=== PATIENT | female | born 1950 | race Caucasian/White ===

== ENCOUNTER → 2020-01-15 16:05 | Outpatient (CLI) | payer MEDICARE, SELFPAY ==
--- NOTE | 2020-01-15 | DI.RAD.S_ITS ---
PROCEDURE: XR BONE LENGTH SCANOGRAM INDICATIONS: Leg Length Different After Knee Replacement TECHNIQUE: A single frontal standing view of both lower extremities acquired, with measuring ruler situated between the legs. COMPARISON: None. FINDINGS: Right: Total leg length is 83.3 cm. Total knee arthroplasty. Left: Total leg length is 84.9 cm. Total knee arthroplasty. IMPRESSION: Right leg is 1.5 cm shorter than the left. Dictated by: Henrique Raya M.D. on 01/15/2020 at 17:01 Approved by: Henrique Raya M.D. on 01/15/2020 at 17:03
== END ==
PROVIDERS: PCP Nurse Practitioner Family; Referring Provider Chiropractor Neurology; Visit Provider Chiropractor Neurology
DX: T84.89XA Other specified complication of internal orthopedic prosthetic devices, implants and grafts, initial encounter (principal); M21.70 Unequal limb length (acquired), unspecified site; M54.9 Dorsalgia, unspecified; Z96.653 Presence of artificial knee joint, bilateral
CPT/HCPCS: 77073

== ENCOUNTER → 2020-07-02 09:57 | Outpatient (CLI) | payer MEDICARE, SELFPAY ==
[2020-07-02 10:19] LABS: Add Manual Diff / Slide Review NO; Basophils Absolute Auto 0 /uL (0-100); Basophils Percent Auto 0.9 % (0-2); Eosinophils Absolute Auto 200 /uL (0-450); Eosinophils Percent Auto 4.1 % (2-4); Hematocrit 36.8 % (36-46); Hemoglobin 11.9 g/dL (12.0-16.0); Lymphocytes Absolute Auto 1400 /uL (1100-4500); Lymphocytes Percent Auto 29.7 % (25-40); Mean Corpuscular HGB Conc 32.2 % (30-36); Mean Corpuscular Hemoglobin 28.4 PG (26-34); Mean Corpuscular Volume 88.2 fL (80-100); Monocytes Absolute Auto 300 /uL (0-900); Monocytes Percent Auto 7.2 % (3-14); Neutrophils Absolute Auto 2700 /uL (1500-7000); Neutrophils Percent Auto 58.1 % (50-75); Platelet Count 156 X10^3/uL (150-400); Red Blood Cell Count 4.17 X10^6/uL (4.0-5.2); Red Cell Distribution Width 13.3 % (11.6-14.8); White Blood Cell Count 4.7 X10^3/uL (4.5-11.0)
[2020-07-02 10:27] LABS: Hemoglobin A1C% w Est Avg Glu 6.8 % (4.0-6.0)
[2020-07-02 10:43] LABS: Alanine Aminotransferase 19 IU/L (<35); Albumin 3.8 g/dL (3.5-5.0); Albumin Globulin Ratio 1.6 (1.0-2.8); Alkaline Phosphatase 88 U/L (38-126); Aspartate Aminotransferase 30 IU/L (14-36); BUN Creatinine Ratio 26.2 (6-22); Bilirubin Total 0.4 mg/dL (0.2-1.3); Blood Urea Nitrogen 16 mg/dL (7-17); Calcium 9.6 mg/dL (8.4-10.2); Carbon Dioxide 33 mmol/L (22-32); Chloride 103 mmol/L (98-107); Cholesterol 159 mg/dL (140-199); Estimated Glomerular Filt Rate > 60.0 mL/min (>60); Globulin 2.4 g/dL (1.7-4.1); Glucose 126 mg/dL (80-110); HDL Cholesterol 42 mg/dL (40-60); HEMOLYSIS < 15 (0-50); LDL Cholesterol Calculated 94 mg/dL (<100); Potassium 4.4 mmol/L (3.4-5.1); Sodium 140 mmol/L (137-145); Total Protein 6.2 g/dL (6.3-8.2); Triglycerides 116 mg/dL (35-150)
[2020-07-02 10:55] LABS: Vitamin D 25 Hydroxy (D3) 44.6 ng/mL (30.0-100.0)
[2020-07-02 11:10] LABS: Thyroid Stimulating Hormone 1.66 uIU/mL (0.47-4.68)
== END ==
PROVIDERS: PCP Family Medicine; Referring Provider Family Medicine; Visit Provider Family Medicine
DX: E07.9 Disorder of thyroid, unspecified (principal); R73.03 Prediabetes; Z68.43 Body mass index [BMI] 50.0-59.9, adult; E55.9 Vitamin D deficiency, unspecified; Z83.3 Family history of diabetes mellitus
CPT/HCPCS: 36415; 80053; 80061; 82306; 83036; 84439; 84443; 84481; 85025

== ENCOUNTER → 2020-07-04 10:09 | Outpatient (CLI) | payer MEDICARE, SELFPAY ==
[2020-07-04 11:35] LABS: COVID19 -Nasal RAPID Negative (Negative)
== END ==
PROVIDERS: PCP Family Medicine; Visit Provider Surgery
DX: Z20.822 Contact with and (suspected) exposure to COVID-19 (principal)
CPT/HCPCS: 87635; C9803

== ENCOUNTER 2020-07-05 13:45 | Day surgery (SDC) | payer MEDICARE, SELFPAY ==
[2020-07-05] VITALS (9 sets, daily range): BP systolic 127–147; BP diastolic 69–84; PULSE 72–87; RESP 14–18; TEMP 36.4–37.4; O2SAT 89–97; BMI 52.1
--- NOTE | 2020-07-05 | PATH_ITS ---
[facility] Accession Number: [id number] . 01 Material submitted: . PART A: colon - POLYP AT 120CM PART B: colon - POLYP AT 40CM . 01 Clinical history: . SDC . 02 Diagnosis: A. Polyp at 120 cm: Tubular adenoma. . B. Polyp at 40 cm: Portions of serrated polyp x3, cannot completely exclude sessile serrated adenoma. Superficial portion of colorectal mucosa x1 with no significant histomorphologic abnormality. MRV 07/08/2020 1420 Local . 02 Electronically signed: . Tess Moreno MD, Pathologist NPI- [id number] . 01 Gross description: . Part A: POLYP AT 120CM: Received in formalin is 1 fragment(s) of adkins, soft tissue measuring 0.4 x 0.3 x 0.2 cm submitted entirely in 1 cassette(s) Part B: POLYP AT 40CM: Received in formalin are 4 fragment(s) of adkins, soft tissue measuring 0.6 x 0.4 x 0.2 cm to 0.2 x 0.2 x 0.1 cm submitted entirely in 1 cassette(s) /QBJ 07/06/2020 0632 Local . 02 Pathologist provided ICD-10: Z12.11, K63.5 . 02 CPT . 864014, 523203 Performed at: 01 [facility] [address] [id number] MD Obey Chamorro MD Phone: [phone] Performed at: 02 [facility] [place] [address] [place], [place] [id number] MD Enma Valencia MD Phone: [phone]
[2020-07-05] MEDS: LACTATED RINGERS 1,000 ML 120 ML IV (14:30)
--- NOTE | 2020-07-05 15:11 | PM.HP.1 ---
History of Present Illness History of Present Illness Date Patient Seen: 07/05/20 Time Patient Seen: 15:11 Chief complaint: [facility] Narrative: This is a 70-year-old woman with history of cancerous polyps removed from her transverse colon several years ago, at a hospital in [facility]. She has had close surveillance ever since then, and her last colonoscopy was 2 years ago. She says that she has intermittent constipation and diarrhea. She denies any melena, hematochezia, unexplained abdominal pain, unexplained weight loss. She has a BMI of 52. Due to her colon history and her high BMI she is at high risk for a prolonged procedure, and respiratory or cardiac complications if performed under conscious sedation. We have consulted Dr. Gonzales, and asked her to perform a general anesthetic for the safety of the patient during the procedure. ROS: Positive for lower extremity edema, arthritis, chronic pain, diverticulitis constipation, easy bruising. Thirteen system review is otherwise negative other than as mentioned below and in HPI. PE: GENERAL: Well groomed and cooperative. Morbidly obese. Appears stated age. Answers questions promptly and appropriately. Vital signs noted. HENT: Normocephalic, atraumatic. Hearing intact. EYES: Conjunctiva pink, sclera white, no periorbital swelling. CARDIOVASCULAR: Regular rate. RESPIRATORY: Non-tachypneic, breathing comfortably on room air. GASTROINTESTINAL: Abdomen soft and non-distended GENITALURINARY: No flank tenderness. MUSCULOSKELETAL: Equal tone and mass bilaterally. SKIN: Warm, dry, soft, appropriate color for ethnicity. No other lesions, rashes, or wounds. NEURO: Alert and Oriented X 3. No gross sensory deficits, or cognitive issues. PSYCH: Appropriate affect and mood. 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 (~04/2017) History of bilateral mastectomy (~01/2017) History of breast implant (~07/2017) History of breast surgery (~04/2018) History of hysterectomy (~1985) History of Kate-en-Y gastric bypass (~04/2013) History of surgery (~07/2011) History of tonsillectomy (~195) Status post left knee replacement (~01/2016) Status post right knee replacement (~05/2015) Thyroglossal duct cyst (~1968) Family & Social History Family History Father Cancer Mother Diabetes mellitus History of heart disease Hypertension Mental health problem Arthritis Brother CLL (chronic lymphocytic leukemia) Thyroid cancer Colon cancer Cancer Brother History of appendectomy Brother Arthritis Sister Diabetes mellitus Hypertension Arthritis Mental health problem Sister Diabetes mellitus Hypertension Arthritis Sister Breast cancer Grandfather Stroke Grandmother Diabetes mellitus History of heart disease Hypertension Social History: household members spouse Tobacco & Substance use: Smoking Status Never smoker alcohol intake never Meds Home Medications and Allergies Home Medications Medication Instructions Recorded Confirmed Type progesterone micronized 100 mcg PO WEEKLY 07/01/20 07/05/20 History Allergies Allergy/AdvReac Type Severity Reaction Status Date / Time diclofenac AdvReac Mild Chill, Verified 07/05/20 14:00 malaise Exam Vital Signs (past 8 hours): - 07/05/20 14:05 Temperature 99.3 F Pulse Rate 75 Respiratory Rate 16 Blood Pressure 142/82 H Pulse Oximetry 95 Oxygen Delivery Method Room Air Assessment & Plan Assessment and plan (1) Morbid obesity: Status: Acute (2) History of colon polyps: Status: Acute Assessment & Plan narrative: Risks and benefits of screening colonoscopy and possible polypectomy were discussed with the patient including risk of bleeding, perforation, need for additional procedures, risks of anesthesia. The patient desires to proceed with the colonoscopy procedure. COVID-19 COVID-19 status: Negative Result date/Date tested (Pos, Neg/Pending): 07/04/20 Time Spent With Patient Time with patient: 15-24 minutes Quality VTE Deep Vein Thrombosis/Pulmonary Embolism Present on Admission: No
--- NOTE | 2020-07-05 15:16 | PM.OP.ENDO ---
Operative Date/Time/Diagnoses Date of procedure: 07/05/20 Time of procedure: 15:20 Pre-op diagnosis: Personal history of advanced colon polyps, due for surveillance colonoscopy Procedure & Clinicians Study performed: Colonoscopy Polypectomy Jumbo forceps x2 Same procedure as scheduled: Yes Indications: Surveillance for prior advanced polyps removed endoscopically. Pt is very high risk due to history of cancerous polyps and her high BMI. Therefore we have consulted Dr. Gonzales of anesthesiology to provide general anesthesia and manage her airway and sedation for the entire procedure. Surgeon: Amber Platt Procedure Notes SCOAP/Timeout: Performed Procedure in detail: The patient was brought to the room and placed supine position. General anesthesia was induced patient was intubated by the anesthesiologist. She was then placed in left lateral decubitus position with all bony prominences padded. A time-out was performed and then a rectal exam was performed revealing no abnormalities. The colonoscope was then introduced to the rectum and advanced to the cecum in the usual fashion. The colon was quite tortuous, and required multiple maneuvers such as using the scope stiffener, and anterior abdominal pressure in order to reach the cecum. Of submucosal lipoma was seen in the cecum, it appeared soft and benign. The cecum was identified by the appendiceal orifice, the mucosal tri-fold, and the ileocecal valve. The scope was then retracted while rotating side to side and examining each mucosal fold. Another submucosal lipoma was seen in the transverse colon. The patient's area of tattoo from her prior polypectomy seen, with no signs of recurrence or any abnormality at the area of tattooing. A small polyp was removed with cold forceps from 120 cm in the colon. Another polyp was removed at 40 cm using Jumbo forceps. Significant diverticulosis was seen in the descending and sigmoid colon. At the conclusion of the procedure retroflexion was performed and small grade 1-2 internal hemorrhoids without stigmata of bleeding were seen. The scope was then withdrawn from the rectum the procedure was concluded. The patient was awakened from anesthesia and extubated. The patient tolerated the procedure well and was transferred to the PACU in stable condition. Scope withdrawal time: 14 Findings: diverticulosis and polyp Specimen(s): other (Polyp x2) Complications: none Impression: Two appearing polyps removed, no growth/recurrence at tattoo site, multiple benign-appearing lipomas, significant diverticulosis in the descending and sigmoid colon Post-procedure Recommendations: Colonscopy in 3 years and Other recommendation (Fiber supplement) Follow up: as needed Disposition: PACU
== END 2020-07-05 17:09 | disposition home or self-care (01) ==
PROVIDERS: PCP Family Medicine; Referring Provider Family Medicine; Visit Provider Surgery
PROC: 0DJD8ZZ Inspection of Lower Intestinal Tract, Via Natural or Artificial Opening Endoscopic (ICD-10-PCS; CPT 45378; principal; 2020-07-05 15:15)
DX: Z12.11 Encounter for screening for malignant neoplasm of colon (principal); Z86.010 Personal history of colon polyps; E66.01 Morbid (severe) obesity due to excess calories; Z68.43 Body mass index [BMI] 50.0-59.9, adult; K57.30 Diverticulosis of large intestine without perforation or abscess without bleeding; K64.0 First degree hemorrhoids; D12.6 Benign neoplasm of colon, unspecified
CPT/HCPCS: 45380; J0330; J1100; J2405; J2704

== ENCOUNTER → 2020-07-07 11:36 | Outpatient (CLI) | payer MEDICARE, SELFPAY ==
--- NOTE | 2020-07-07 11:38 | DI.RAD.S_ITS ---
PROCEDURE: XR CHEST 2V INDICATIONS: Lung pain TECHNIQUE: 2 views of the chest were acquired. COMPARISON: None. FINDINGS: Surgical changes and devices: Surgical clips in the breasts bilaterally.. Lungs and pleura: Lungs are clear. No pleural effusions or pneumothorax. Mediastinum: Mediastinal contours are normal. Heart size is normal. Bones and chest wall: No suspicious bony abnormalities. Soft tissues appear unremarkable. IMPRESSION: No acute cardiopulmonary disease process. Dictated by: Amparo Cuadra MD, PhD on 07/07/2020 at 11:57 Approved by: Amparo Cuadra MD, PhD on 07/07/2020 at 11:59
== END ==
PROVIDERS: PCP Family Medicine; Referring Provider Physician Assistant; Visit Provider Physician Assistant
DX: R07.81 Pleurodynia (principal)
CPT/HCPCS: 71046

== ENCOUNTER → 2020-12-27 10:41 | Outpatient (CLI) | payer MEDICARE, SELFPAY ==
[2020-12-27 12:00] LABS: Hemoglobin A1C% w Est Avg Glu 6.5 % (4.0-6.0)
== END ==
PROVIDERS: PCP Family Medicine; Referring Provider Family Medicine; Visit Provider Family Medicine
DX: E11.9 Type 2 diabetes mellitus without complications (principal)
CPT/HCPCS: 36415; 83036

== ENCOUNTER → 2021-01-24 11:12 | Outpatient (CLI) | payer MEDICARE, SELFPAY ==
--- NOTE | 2021-01-24 11:12 | DI.US.S_ITS ---
PROCEDURE: US PERIPH VENOUS LOW EXTREM BI INDICATIONS: calf pain TECHNIQUE: Real-time imaging, as well as color and pulse Doppler interrogation, were performed of the deep veins of both legs from the inguinal ligament to the popliteal fossa. COMPARISON: None. FINDINGS: Right: The common femoral, femoral and popliteal veins are normally compressible, and free of intraluminal thrombus. Color and pulse Doppler demonstrate normal phasic intravascular flow. There is normal augmentation response to distal compression maneuver. Left: The common femoral, femoral and popliteal veins are normally compressible, and free of intraluminal thrombus. Color and pulse Doppler demonstrate normal phasic intravascular flow. There is normal augmentation response to distal compression maneuver. This study is limited by body habitus. IMPRESSION: Negative for deep venous thrombosis. Dictated by: Massimo Romero M.D. on 01/25/2021 at 8:42 Approved by: Massimo Romero M.D. on 01/25/2021 at 8:43
== END ==
PROVIDERS: PCP Family Medicine; Referring Provider Family Medicine; Visit Provider Family Medicine
DX: M79.661 Pain in right lower leg (principal); M79.662 Pain in left lower leg
CPT/HCPCS: 93970

== ENCOUNTER → 2021-03-14 15:26 | Outpatient (CLI) | payer MEDICARE, SELFPAY ==
[2021-03-14 15:57] LABS: COVID19 -Nasal RAPID Negative (Negative)
== END ==
PROVIDERS: PCP Family Medicine; Referring Provider Physician Assistant; Visit Provider Physician Assistant
DX: Z20.822 Contact with and (suspected) exposure to COVID-19 (principal)
CPT/HCPCS: 87635

== ENCOUNTER → 2021-04-03 14:29 | Outpatient (CLI) | payer MEDICARE, SELFPAY ==
[2021-04-03 19:33] LABS: COVID19 -Nasal RAPID Negative (Negative)
== END ==
PROVIDERS: PCP Family Medicine; Visit Provider Physician Assistant
DX: Z20.822 Contact with and (suspected) exposure to COVID-19 (principal)
CPT/HCPCS: 87635

== ENCOUNTER → 2021-07-04 09:42 | Outpatient (CLI) | payer MEDICARE, SELFPAY ==
[2021-07-04 12:49] LABS: Add Manual Diff / Slide Review NO; Basophils Absolute Auto 0 /uL (0-100); Basophils Percent Auto 0.4 % (0-2); Eosinophils Absolute Auto 200 /uL (0-450); Hemoglobin 12.1 g/dL (12.0-16.0); Lymphocytes Absolute Auto 1200 /uL (1100-4500); Lymphocytes Percent Auto 31.6 % (25-40); Mean Corpuscular HGB Conc 32.8 % (30-36); Mean Corpuscular Hemoglobin 28.7 PG (26-34); Mean Corpuscular Volume 87.5 fL (80-100); Monocytes Absolute Auto 300 /uL (0-900); Monocytes Percent Auto 7.2 % (3-14); Neutrophils Absolute Auto 2200 /uL (1500-7000); Neutrophils Percent Auto 56.8 % (50-75); Platelet Count 160 X10^3/uL (150-400); Red Blood Cell Count 4.23 X10^6/uL (4.0-5.2); Red Cell Distribution Width 16.2 % (11.6-14.8); White Blood Cell Count 3.8 X10^3/uL (4.5-11.0)
[2021-07-04 13:30] LABS: Hemoglobin A1C% w Est Avg Glu 6.4 % (4.0-6.0)
[2021-07-04 13:44] LABS: Alanine Aminotransferase 17 IU/L (<35); Albumin Globulin Ratio 1.7 (1.0-2.8); Alkaline Phosphatase 90 U/L (38-126); Aspartate Aminotransferase 24 IU/L (14-36); BUN Creatinine Ratio 22.2 (6-22); Bilirubin Total 0.4 mg/dL (0.2-1.3); Blood Urea Nitrogen 14 mg/dL (7-17); Calcium 9.6 mg/dL (8.4-10.2); Carbon Dioxide 34 mmol/L (22-32); Chloride 103 mmol/L (98-107); Cholesterol 146 mg/dL (140-199); Estimated Glomerular Filt Rate > 60.0 mL/min (>60); Globulin 2.3 g/dL (1.7-4.1); Glucose 100 mg/dL (80-110); HDL Cholesterol 45 mg/dL (40-60); HEMOLYSIS < 15 (0-50); LDL Cholesterol Calculated 77 mg/dL (<100); Potassium 4.6 mmol/L (3.4-5.1); Sodium 143 mmol/L (137-145); Total Protein 6.3 g/dL (6.3-8.2); Triglycerides 118 mg/dL (35-150)
== END ==
PROVIDERS: PCP Family Medicine; Referring Provider Family Medicine; Visit Provider Family Medicine
DX: E11.9 Type 2 diabetes mellitus without complications (principal)
CPT/HCPCS: 36415; 80053; 80061; 83036; 85025

== ENCOUNTER 2021-07-06 16:00 | Outpatient (RCR) | payer MEDICARE, SELFPAY ==
--- NOTE | 2021-04-28 16:11 | PT.OIE ---
Current Diagnoses Other acquired deformities of right foot (04/28/21) Muscle weakness (generalized) (04/28/21) Pain in unspecified lower leg (04/28/21) Past Medical History (Last Updated 04/13/21 @ 09:14 by Karthik Andres DO) Anemia (~1989) Bilateral lower extremity edema BMI 50.0-59.9, adult Breast cancer (~2016) Chicken pox Chronic back pain Colorectal cancer (~2016) Diabetes Displacement of breast implant Family history of diabetes mellitus Fibroids (~1979) History of bilateral mastectomy (~01/2017) History of breast implant (~07/2017) History of breast surgery (~04/2018) History of hysterectomy (~1985) History of Kate-en-Y gastric bypass (~04/2013) History of surgery (~07/2011) History of tonsillectomy (~1956) IBS (irritable bowel syndrome) Lower leg pain Lymphedema (~2013) Measles Mumps Rough skin Sleep apnea (~2012) Status post left knee replacement (~01/2016) Status post right knee replacement (~05/2015) Swelling of thyroid gland (~2014) Tinnitus (~2019) Vitamin D deficiency Past Surgical History (Last Reviewed 04/03/21 @ 15:09 by Stefany Schafer PA-C) Anesthesia 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 (~04/2017) History of bilateral mastectomy (~01/2017) History of breast implant (~07/2017) History of breast surgery (~04/2018) History of hysterectomy (~1985) History of Kate-en-Y gastric bypass (~04/2013) History of surgery (~07/2011) History of tonsillectomy (~1956) Status post left knee replacement (~01/2016) Status post right knee replacement (~05/2015) Thyroglossal duct cyst (~1968) Visit Care Team Role Provider Type Karthik Andres DO Attending Provider Physician Primary Care Provider Referring Provider Specialty: Family Practice Address: [address] [place] [address], [id number] Email: Physical Therapy Initial Evaluation PT-OP-A Visit Information Start: 04/28/21 15:33 Freq: Status: Active Protocol: Document 04/28/21 14:30 DCW (Rec: 04/28/21 15:46 DCW [id number]) Out-Patient Physical Therapy Visit Information Visit Information Visit Type Initial Evaluation Visit Start Time 14:30 Visit Stop Time 15:25 Total Visit Minutes 55 Visit Number 1 Number of LAST PUTTER AWAY Visits 0 Evaluation Information Evaluation Date 04/28/21 PT-OP-B Current Condition Start: 04/28/21 15:33 Freq: Status: Active Protocol: Document 04/28/21 14:30 DCW (Rec: 04/28/21 15:46 DCW [id number]) Current Condition History of Current Condition Onset Date Multi-year history Current Complaints knee, dejesus, and ankle pain, R> L History of Current Condition Pt is a 71 year old female presenting with a 2 year history of worsening anterior dejesus pain. Pt reports she has a constant, low-level pain in her right leg, which worsens with activity. Left leg also begins to hurt with activity. Pt reports she has not found anything that helps relieve pain, other than mild relief with Voltaren gel, which she has not been using recently. Notes she has difficulty on stairs when leading with the right foot, and although she used to enjoy ballroom dancing , she is now unable to participate due to pain. 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, and that in late 2019, she had an LE x-ray which showed a 1.5 cm leg length discrepancy, right shorter than left Treatment Goals Patient/Caregiver Goals Eliminate pain, improve ability to ascend stairs PT-OP-C Subjective Start: 04/28/21 15:33 Freq: Status: Active Protocol: Document 04/28/21 14:30 DCW (Rec: 04/28/21 15:46 DCW [id number]) OP-PT Subjective Patient Comments Patient Comments The left side is typically only exacerbated with movement , the right is just constant. Patient Reported Progress Improving Patient Questionnaires Lower Extremity Functional Scale LEFS Score 58/80 = 72.5% LEFS Impairment 20 to 39% Impaired (Score 48- 62) OP-PT Pain Assessment Pain Assessment Grid Paper Pain Assessment Grid Completed Yes: See chart PT-OP-F Manual Assessment Start: 04/28/21 15:33 Freq: Status: Active Protocol: Document 04/28/21 14:30 DCW (Rec: 04/28/21 16:10 DCW [id number]) Manual Assessments Soft Tissue Assessment Soft Tissue Mobility Assessment Tenderness to palpation 2/4 - pain with wincing along bilateral anterior tib and paroneals. Joint Mobility Assessment Joint Mobility Assessment Navicular bone drops 1 cm L and 1.2 cm R from sitting-> standing PT-OP-G Mobility & Gait Start: 04/28/21 15:33 Freq: Status: Active Protocol: Document 04/28/21 14:30 DCW (Rec: 04/28/21 16:10 DCW [id number]) OP Gait Assessment Gait Gait Assistance Required: Independent Assistive Devices Assistive Device None Orthotic/Prosthetic Devices or Brace: Yes Gait Deviations General Gait Pattern Antalgic Comments Gait Comments Ambulates with R heel lift. Bilateral excessive pronation in feet. R heel whip during swing phase. Bilateral trendelenberg. Stair Climbing Evaluation Devices Stair Climbing Assistive Devices None Technique/Endurance Stair Climbing Direction Ascend and Descend Stair Climbing Technique Step to Step PT-OP-J Posture/Palpation/Skin Start: 04/28/21 15:33 Freq: Status: Active Protocol: Document 04/28/21 14:30 DCW (Rec: 04/28/21 16:10 DCW [id number]) Posture Evaluation Position Standing Ankle/Foot Posture (L) Pronated,(R) Pronated Foot Arch (L) Low Arch,(R) Low Arch PT-OP-M Strength Start: 04/28/21 15:33 Freq: Status: Active Protocol: Document 04/28/21 14:30 DCW (Rec: 04/28/21 16:10 DCW [id number]) Hip Strength Hip Manual Muscle Testing Right Flexion (L2) 5 Normal Extension (S1) 4 Good Abduction 4 Good Adduction 4 Good External Rotation 4 Good Internal Rotation 4 Good Left Flexion (L2) 5 Normal Extension (S1) 4 Good Abduction 4 Good Adduction 4 Good External Rotation 4 Good Internal Rotation 4 Good Knee Strength Knee Manual Muscle Testing Right Flexion (S2) 4+ Good+ Extension (L3) 4+ Good+ Left Flexion (S2) 4+ Good+ Extension (L3) 4+ Good+ Ankle/Foot Strength Ankle and Foot Manual Muscle Testing Right Dorsiflexion (L4) 4+ Good+ Plantarflexion (S1) 4+ Good+ Inversion 4+ Good+ Eversion (S1) 4+ Good+ Left Dorsiflexion (L4) 4+ Good+ Plantarflexion (S1) 4+ Good+ Inversion 4+ Good+ Eversion (S1) 4+ Good+ PT-OP-Q Treatments Start: 04/28/21 15:33 Freq: Status: Active Protocol: Document 04/28/21 14:30 DCW (Rec: 04/28/21 15:47 DCW [id number]) Self-Care/Home Management Treatment Education Patient Education Posture Other Education Use for orthotics, proper foot positioning, gait PT-OP-T Assessment and Plan Start: 04/28/21 15:33 Freq: Status: Active Protocol: Document 04/28/21 14:30 DCW (Rec: 04/28/21 16:03 DCW [id number]) Physical Therapy Assessment Rehab Potential Rehabilitation Potential Good Evaluation Complexity Number of Personal Factors/Comorbidities 3 or More Number of Body Systems Impaired 4 or More Clinical Presentation at Evaluation Unstable Impairments Impairments Functional Activities, Functional Mobility,Gait,Soft Tissue Mobility,Strength Goals Two Impairment Pt navicular bone drops 1 cm bilaterally in standing Residential Goal (LTG) Pt to demonstrate a navicular drop of less than 0.5 cm bilaterally LTG Duration 05/29/21 One Impairment Pt does not have an appropriate home exercise program Short Term Goal (STG) Pt to be independent and compliant with an appropriate HEP STG Duration 05/12/21 Assessment Summary Assessment Pt presents with signs and symptoms consistent with knee and ankle pain secondary to gait dysfunction caused by excessive pronation in standing. Pt's has noticeable arch collapse with standing and ambulation, with her navicular bilaterally dropping 1+ cm. Pt exhibits slight heel whip on R side during gait. Mild hip weakness creates difficulty with stairs and trendelenberg gait pattern. Pt already has a R heel lift due to her LLD, and will likely benefit from increased arch support, hip and ankle strengthening, and gait training. Physical Therapy Plan Frequency and Duration Frequency of Treatment 1x/Week Duration of Treatment Two months Plan of Care Start Date 04/28/21 Plan of Care End Date 05/29/21 Therapeutic Interventions Therapeutic Interventions Gait Training,Home Exercise Program,Manual Therapy, Neuromuscular Re-education, Patient/Caregiver Education, Self-Care/Home Management,Soft Tissue Mobilization, Therapeutic Exercises Next Visit Focus/Plan Next Note Type Treatment Note Next Visit Plan Gait training, strengthening
--- NOTE | 2021-04-28 16:12 | PT.OPPOC ---
Physical, Occupational & Speech Therapy At [facility] Current Diagnoses Other acquired deformities of right foot (04/28/21) Muscle weakness (generalized) (04/28/21) Pain in unspecified lower leg (04/28/21) Visit Care Team Role Provider Type Karthik Andres DO Attending Provider Physician Primary Care Provider Referring Provider Specialty: [facility] Address: [address] [place] [address], [facility] Email: Plan Of Care PT-OP-T Assessment and Plan Start: 04/28/21 15:33 Freq: Status: Active Protocol: Document 04/28/21 14:30 DCW (Rec: 04/28/21 16:03 DCW [id number]) Physical Therapy Assessment Rehab Potential Rehabilitation Potential Good Evaluation Complexity Number of Personal Factors/Comorbidities 3 or More Number of Body Systems Impaired 4 or More Clinical Presentation at Evaluation Unstable Impairments Impairments Functional Activities, Functional Mobility,Gait,Soft Tissue Mobility,Strength Goals Two Impairment Pt navicular bone drops 1 cm bilaterally in standing Fpc Goal (LTG) Pt to demonstrate a navicular drop of less than 0.5 cm bilaterally LTG Duration 05/29/21 One Impairment Pt does not have an appropriate home exercise program Short Term Goal (STG) Pt to be independent and compliant with an appropriate HEP STG Duration 05/12/21 Assessment Summary Assessment Pt presents with signs and symptoms consistent with knee and ankle pain secondary to gait dysfunction caused by excessive pronation in standing. Pt's has noticeable arch collapse with standing and ambulation, with her navicular bilaterally dropping 1+ cm. Pt exhibits slight heel whip on R side during gait. Mild hip weakness creates difficulty with stairs and trendelenberg gait pattern. Pt already has a R heel lift due to her LLD, and will likely benefit from increased arch support, hip and ankle strengthening, and gait training. Physical Therapy Plan Frequency and Duration Frequency of Treatment 1x/Week Duration of Treatment Two months Plan of Care Start Date 04/28/21 Plan of Care End Date 05/29/21 Therapeutic Interventions Therapeutic Interventions Gait Training,Home Exercise Program,Manual Therapy, Neuromuscular Re-education, Patient/Caregiver Education, Self-Care/Home Management,Soft Tissue Mobilization, Therapeutic Exercises Next Visit Focus/Plan Next Note Type Treatment Note Next Visit Plan Gait training, strengthening Plan of Care Dates Plan of Care Start Date 04/28/21 Plan of Care End Date 05/29/21 Electronically Signed by: Tello Castellanos, HOLLIE 04/28/21 0533 Please Sign and Return: I have reviewed this Plan of Care and certify that the skilled therapy services above are required to meet the patient?s needs. Physician Signature Date Printed Name and Credentials Clinical Instructor Signature Printed Name and Credentials
--- NOTE | 2021-05-05 15:19 | PT.OTN ---
Current Diagnoses Other acquired deformities of right foot (05/05/21) Muscle weakness (generalized) (05/05/21) Pain in unspecified lower leg (05/05/21) Physical Therapy Treatment Note PT-OP-A Visit Information Start: 04/28/21 15:33 Freq: Status: Active Protocol: Document 05/05/21 14:30 DCW (Rec: 05/05/21 15:19 DCW [id number]) Out-Patient Physical Therapy Visit Information Visit Information Visit Type Treatment Note Visit Start Time 14:30 Visit Stop Time 15:15 Total Visit Minutes 45 Visit Number 2 Number of BIOINFORMATICS TEAM MEMBER Visits 0 Evaluation Information Evaluation Date 04/28/21 PT-OP-B Current Condition Start: 04/28/21 15:33 Freq: Status: Active Protocol: Document 04/28/21 14:30 DCW (Rec: 04/28/21 15:46 DCW [id number]) Current Condition History of Current Condition Onset Date Multi-year history Current Complaints knee, dejesus, and ankle pain, R> L History of Current Condition Pt is a 71 year old female presenting with a 2 year history of worsening anterior dejesus pain. Pt reports she has a constant, low-level pain in her right leg, which worsens with activity. Left leg also begins to hurt with activity. Pt reports she has not found anything that helps relieve pain, other than mild relief with Voltaren gel, which she has not been using recently. Notes she has difficulty on stairs when leading with the right foot, and although she used to enjoy ballroom dancing , she is now unable to participate due to pain. 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 PT-OP-F Manual Assessment Start: 04/28/21 15:33 Freq: Status: Active Protocol: Document 04/28/21 14:30 DCW (Rec: 04/28/21 16:10 DCW [id number]) Manual Assessments Soft Tissue Assessment Soft Tissue Mobility Assessment Tenderness to palpation 2/4 - pain with wincing along bilateral anterior tib and paroneals. Joint Mobility Assessment Joint Mobility Assessment Navicular bone drops 1 cm L and 1.2 cm R from sitting-> standing PT-OP-G Mobility & Gait Start: 04/28/21 15:33 Freq: Status: Active Protocol: Document 04/28/21 14:30 DCW (Rec: 04/28/21 16:10 DCW [id number]) OP Gait Assessment Gait Gait Assistance Required: Independent Assistive Devices Assistive Device None Orthotic/Prosthetic Devices or Brace: Yes Gait Deviations General Gait Pattern Antalgic Comments Gait Comments Ambulates with R heel lift. Bilateral excessive pronation in feet. R heel whip during swing phase. Bilateral trendelenberg. Stair Climbing Evaluation Devices Stair Climbing Assistive Devices None Technique/Endurance Stair Climbing Direction Ascend and Descend Stair Climbing Technique Step to Step PT-OP-J Posture/Palpation/Skin Start: 04/28/21 15:33 Freq: Status: Active Protocol: Document 04/28/21 14:30 DCW (Rec: 04/28/21 16:10 DCW [id number]) Posture Evaluation Position Standing Ankle/Foot Posture (L) Pronated,(R) Pronated Foot Arch (L) Low Arch,(R) Low Arch PT-OP-M Strength Start: 04/28/21 15:33 Freq: Status: Active Protocol: Document 04/28/21 14:30 DCW (Rec: 04/28/21 16:10 DCW [id number]) Hip Strength Hip Manual Muscle Testing Right Flexion (L2) 5 Normal Extension (S1) 4 Good Abduction 4 Good Adduction 4 Good External Rotation 4 Good Internal Rotation 4 Good Left Flexion (L2) 5 Normal Extension (S1) 4 Good Abduction 4 Good Adduction 4 Good External Rotation 4 Good Internal Rotation 4 Good Knee Strength Knee Manual Muscle Testing Right Flexion (S2) 4+ Good+ Extension (L3) 4+ Good+ Left Flexion (S2) 4+ Good+ Extension (L3) 4+ Good+ Ankle/Foot Strength Ankle and Foot Manual Muscle Testing Right Dorsiflexion (L4) 4+ Good+ Plantarflexion (S1) 4+ Good+ Inversion 4+ Good+ Eversion (S1) 4+ Good+ Left Dorsiflexion (L4) 4+ Good+ Plantarflexion (S1) 4+ Good+ Inversion 4+ Good+ Eversion (S1) 4+ Good+ PT-OP-Q Treatments Start: 04/28/21 15:33 Freq: Status: Active Protocol: Document 05/05/21 14:30 DCW (Rec: 05/05/21 15:19 DCW [id number]) Cardio Equipment Recumbent Elliptical (Biodex) Duration (Minutes) 4 Resistance 4 Seat Position 8 Gym Equipment Shuttle Recovery Bilateral Heel Raises Resistance 62# Unilateral Squats Resistance 62# Bilateral Squats Resistance 100# Therapeutic Exercises Sitting Exercises 2 Sitting Exercise Name [place] pick-up 1 Sitting Exercise Name 4-way ankle flexion Side bilateral Resistance Lv 2 Standing Exercises 1 Standing Exercise Name Hip Extension Side bilateral Resistance Red Other Exercises 1 Other Exercise Name Resisted side-stepping Resistance Red PT-OP-T Assessment and Plan Start: 04/28/21 15:33 Freq: Status: Active Protocol: Document 05/05/21 14:30 DCW (Rec: 05/05/21 15:19 DCW [id number]) Physical Therapy Assessment Goals Two Impairment Pt navicular bone drops 1 cm bilaterally in standing [facility] Goal (LTG) Pt to demonstrate a navicular drop of less than 0.5 cm bilaterally LTG Duration 05/29/21 One Impairment Pt does not have an appropriate home exercise program Short Term Goal (STG) Pt to be independent and compliant with an appropriate HEP STG Duration 05/12/21 Assessment Summary Assessment Pt tolerated treatment fairly well today, was having some increased soreness/tightness in anterior and lateral dejesus with activity. Physical Therapy Plan Frequency and Duration Frequency of Treatment 1x/Week Duration of Treatment Two months Plan of Care Start Date 04/28/21 Plan of Care End Date 05/29/21 Therapeutic Interventions Therapeutic Interventions Gait Training,Home Exercise Program,Manual Therapy, Neuromuscular Re-education, Patient/Caregiver Education, Self-Care/Home Management,Soft Tissue Mobilization, Therapeutic Exercises Next Visit Focus/Plan Next Note Type Treatment Note Next Visit Plan Gait training, strengthening
--- NOTE | 2021-05-12 14:42 | PT.OTN ---
Current Diagnoses Other acquired deformities of right foot (05/12/21) Muscle weakness (generalized) (05/12/21) Pain in unspecified lower leg (05/12/21) Physical Therapy Treatment Note PT-OP-A Visit Information Start: 04/28/21 15:33 Freq: Status: Active Protocol: Document 05/12/21 13:45 DCW (Rec: 05/12/21 14:42 DCW [id number]) Out-Patient Physical Therapy Visit Information Visit Information Visit Type Treatment Note Visit Start Time 13:45 Visit Stop Time 14:30 Total Visit Minutes 45 Visit Number 3 Number of MULTI PURPOSE MACHINE OPERATOR Visits 0 Evaluation Information Evaluation Date 04/28/21 PT-OP-B Current Condition Start: 04/28/21 15:33 Freq: Status: Active Protocol: Document 04/28/21 14:30 DCW (Rec: 04/28/21 15:46 DCW [id number]) Current Condition History of Current Condition Onset Date Multi-year history Current Complaints knee, dejesus, and ankle pain, R> L History of Current Condition Pt is a 71 year old female presenting with a 2 year history of worsening anterior dejesus pain. Pt reports she has a constant, low-level pain in her right leg, which worsens with activity. Left leg also begins to hurt with activity. Pt reports she has not found anything that helps relieve pain, other than mild relief with Voltaren gel, which she has not been using recently. Notes she has difficulty on stairs when leading with the right foot, and although she used to enjoy ballroom dancing , she is now unable to participate due to pain. 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 PT-OP-F Manual Assessment Start: 04/28/21 15:33 Freq: Status: Active Protocol: Document 04/28/21 14:30 DCW (Rec: 04/28/21 16:10 DCW [id number]) Manual Assessments Soft Tissue Assessment Soft Tissue Mobility Assessment Tenderness to palpation 2/4 - pain with wincing along bilateral anterior tib and paroneals. Joint Mobility Assessment Joint Mobility Assessment Navicular bone drops 1 cm L and 1.2 cm R from sitting-> standing PT-OP-G Mobility & Gait Start: 04/28/21 15:33 Freq: Status: Active Protocol: Document 04/28/21 14:30 DCW (Rec: 04/28/21 16:10 DCW [id number]) OP Gait Assessment Gait Gait Assistance Required: Independent Assistive Devices Assistive Device None Orthotic/Prosthetic Devices or Brace: Yes Gait Deviations General Gait Pattern Antalgic Comments Gait Comments Ambulates with R heel lift. Bilateral excessive pronation in feet. R heel whip during swing phase. Bilateral trendelenberg. Stair Climbing Evaluation Devices Stair Climbing Assistive Devices None Technique/Endurance Stair Climbing Direction Ascend and Descend Stair Climbing Technique Step to Step PT-OP-J Posture/Palpation/Skin Start: 04/28/21 15:33 Freq: Status: Active Protocol: Document 04/28/21 14:30 DCW (Rec: 04/28/21 16:10 DCW [id number]) Posture Evaluation Position Standing Ankle/Foot Posture (L) Pronated,(R) Pronated Foot Arch (L) Low Arch,(R) Low Arch PT-OP-M Strength Start: 04/28/21 15:33 Freq: Status: Active Protocol: Document 04/28/21 14:30 DCW (Rec: 04/28/21 16:10 DCW [id number]) Hip Strength Hip Manual Muscle Testing Right Flexion (L2) 5 Normal Extension (S1) 4 Good Abduction 4 Good Adduction 4 Good External Rotation 4 Good Internal Rotation 4 Good Left Flexion (L2) 5 Normal Extension (S1) 4 Good Abduction 4 Good Adduction 4 Good External Rotation 4 Good Internal Rotation 4 Good Knee Strength Knee Manual Muscle Testing Right Flexion (S2) 4+ Good+ Extension (L3) 4+ Good+ Left Flexion (S2) 4+ Good+ Extension (L3) 4+ Good+ Ankle/Foot Strength Ankle and Foot Manual Muscle Testing Right Dorsiflexion (L4) 4+ Good+ Plantarflexion (S1) 4+ Good+ Inversion 4+ Good+ Eversion (S1) 4+ Good+ Left Dorsiflexion (L4) 4+ Good+ Plantarflexion (S1) 4+ Good+ Inversion 4+ Good+ Eversion (S1) 4+ Good+ PT-OP-Q Treatments Start: 04/28/21 15:33 Freq: Status: Active Protocol: Document 05/12/21 13:45 DCW (Rec: 05/12/21 14:42 DCW [id number]) Cardio Equipment Recumbent Elliptical (Biodex) Duration (Minutes) 4 Resistance 4 Seat Position 8 Gym Equipment Shuttle Recovery Bilateral Heel Raises Resistance 62# Unilateral Squats Resistance 62# Bilateral Squats Resistance 100# Manual Therapy Treatment Soft Tissue Mobilization 1 Body Location B Anterior Tib Mobilization Type Sustained Pressure,Trigger Point Release Intensity/Depth Moderate Body Position Sitting Joint Mobilizations 1 Joint Navicular mobs Grade III PT-OP-T Assessment and Plan Start: 04/28/21 15:33 Freq: Status: Active Protocol: Document 05/12/21 13:45 DCW (Rec: 05/12/21 14:42 DCW [id number]) Physical Therapy Assessment Impairments Impairments Functional Activities, Functional Mobility,Gait,Soft Tissue Mobility,Strength Goals Two Impairment Pt navicular bone drops 1 cm bilaterally in standing Property Claim Rep Goal (LTG) Pt to demonstrate a navicular drop of less than 0.5 cm bilaterally LTG Duration 05/29/21 One Impairment Pt does not have an appropriate home exercise program Short Term Goal (STG) Pt to be independent and compliant with an appropriate HEP STG Duration 05/12/21 Assessment Summary Assessment Pt showing some increased ankle stability with standing, less ankle inversion, however still has excessive pronation during gait. Physical Therapy Plan Frequency and Duration Frequency of Treatment 1x/Week Duration of Treatment Two months Plan of Care Start Date 04/28/21 Plan of Care End Date 05/29/21 Therapeutic Interventions Therapeutic Interventions Gait Training,Home Exercise Program,Manual Therapy, Neuromuscular Re-education, Patient/Caregiver Education, Self-Care/Home Management,Soft Tissue Mobilization, Therapeutic Exercises Next Visit Focus/Plan Next Note Type Treatment Note Next Visit Plan Gait training, strengthening
--- NOTE | 2021-05-19 16:48 | PT.OTN ---
Current Diagnoses Other acquired deformities of right foot (05/19/21) Muscle weakness (generalized) (05/19/21) Pain in unspecified lower leg (05/19/21) Physical Therapy Treatment Note PT-OP-A Visit Information Start: 04/28/21 15:33 Freq: Status: Active Protocol: Document 05/19/21 16:00 DCW (Rec: 05/19/21 16:47 DCW [id number]) Out-Patient Physical Therapy Visit Information Visit Information Visit Type Treatment Note Visit Start Time 16:00 Visit Stop Time 16:45 Total Visit Minutes 45 Visit Number 4 Number of POT FEEDER Visits 0 Evaluation Information Evaluation Date 04/28/21 PT-OP-B Current Condition Start: 04/28/21 15:33 Freq: Status: Active Protocol: Document 04/28/21 14:30 DCW (Rec: 04/28/21 15:46 DCW [id number]) Current Condition History of Current Condition Onset Date Multi-year history Current Complaints knee, dejesus, and ankle pain, R> L History of Current Condition Pt is a 71 year old female presenting with a 2 year history of worsening anterior dejesus pain. Pt reports she has a constant, low-level pain in her right leg, which worsens with activity. Left leg also begins to hurt with activity. Pt reports she has not found anything that helps relieve pain, other than mild relief with Voltaren gel, which she has not been using recently. Notes she has difficulty on stairs when leading with the right foot, and although she used to enjoy ballroom dancing , she is now unable to participate due to pain. 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 PT-OP-F Manual Assessment Start: 04/28/21 15:33 Freq: Status: Active Protocol: Document 04/28/21 14:30 DCW (Rec: 04/28/21 16:10 DCW [id number]) Manual Assessments Soft Tissue Assessment Soft Tissue Mobility Assessment Tenderness to palpation 2/4 - pain with wincing along bilateral anterior tib and paroneals. Joint Mobility Assessment Joint Mobility Assessment Navicular bone drops 1 cm L and 1.2 cm R from sitting-> standing PT-OP-G Mobility & Gait Start: 04/28/21 15:33 Freq: Status: Active Protocol: Document 04/28/21 14:30 DCW (Rec: 04/28/21 16:10 DCW [id number]) OP Gait Assessment Gait Gait Assistance Required: Independent Assistive Devices Assistive Device None Orthotic/Prosthetic Devices or Brace: Yes Gait Deviations General Gait Pattern Antalgic Comments Gait Comments Ambulates with R heel lift. Bilateral excessive pronation in feet. R heel whip during swing phase. Bilateral trendelenberg. Stair Climbing Evaluation Devices Stair Climbing Assistive Devices None Technique/Endurance Stair Climbing Direction Ascend and Descend Stair Climbing Technique Step to Step PT-OP-J Posture/Palpation/Skin Start: 04/28/21 15:33 Freq: Status: Active Protocol: Document 04/28/21 14:30 DCW (Rec: 04/28/21 16:10 DCW [id number]) Posture Evaluation Position Standing Ankle/Foot Posture (L) Pronated,(R) Pronated Foot Arch (L) Low Arch,(R) Low Arch PT-OP-M Strength Start: 04/28/21 15:33 Freq: Status: Active Protocol: Document 04/28/21 14:30 DCW (Rec: 04/28/21 16:10 DCW [id number]) Hip Strength Hip Manual Muscle Testing Right Flexion (L2) 5 Normal Extension (S1) 4 Good Abduction 4 Good Adduction 4 Good External Rotation 4 Good Internal Rotation 4 Good Left Flexion (L2) 5 Normal Extension (S1) 4 Good Abduction 4 Good Adduction 4 Good External Rotation 4 Good Internal Rotation 4 Good Knee Strength Knee Manual Muscle Testing Right Flexion (S2) 4+ Good+ Extension (L3) 4+ Good+ Left Flexion (S2) 4+ Good+ Extension (L3) 4+ Good+ Ankle/Foot Strength Ankle and Foot Manual Muscle Testing Right Dorsiflexion (L4) 4+ Good+ Plantarflexion (S1) 4+ Good+ Inversion 4+ Good+ Eversion (S1) 4+ Good+ Left Dorsiflexion (L4) 4+ Good+ Plantarflexion (S1) 4+ Good+ Inversion 4+ Good+ Eversion (S1) 4+ Good+ PT-OP-Q Treatments Start: 04/28/21 15:33 Freq: Status: Active Protocol: Document 05/19/21 16:00 DCW (Rec: 05/19/21 16:47 DCW [id number]) Cardio Equipment Recumbent Elliptical (Biodex) Duration (Minutes) 4 Resistance 4 Seat Position 8 Gym Equipment Shuttle Recovery Bilateral Heel Raises Resistance 62# Unilateral Squats Resistance 62# Bilateral Squats Resistance 100# Therapeutic Exercises Sitting Exercises 3 Sitting Exercise Name Short foot Side bilateral 1 Sitting Exercise Name ankle dorsiflexion Side bilateral Resistance Lv 2 Manual Therapy Treatment Soft Tissue Mobilization 1 Body Location B Anterior Tib Mobilization Type Sustained Pressure,Trigger Point Release Intensity/Depth Moderate Body Position Sitting Joint Mobilizations 1 Joint Navicular mobs Grade III PT-OP-T Assessment and Plan Start: 04/28/21 15:33 Freq: Status: Active Protocol: Document 05/19/21 16:00 DCW (Rec: 05/19/21 16:47 DCW [id number]) Physical Therapy Assessment Impairments Impairments Functional Activities, Functional Mobility,Gait,Soft Tissue Mobility,Strength Goals Two Impairment Pt navicular bone drops 1 cm bilaterally in standing [facility] Goal (LTG) Pt to demonstrate a navicular drop of less than 0.5 cm bilaterally LTG Duration 05/29/21 One Impairment Pt does not have an appropriate home exercise program Short Term Goal (STG) Pt to be independent and compliant with an appropriate HEP STG Duration 05/12/21 Assessment Summary Assessment Notable improvement with tone and tenderness along anterior tib, improving Navicular mobility. Physical Therapy Plan Frequency and Duration Frequency of Treatment 1x/Week Duration of Treatment Two months Plan of Care Start Date 04/28/21 Plan of Care End Date 05/29/21 Therapeutic Interventions Therapeutic Interventions Gait Training,Home Exercise Program,Manual Therapy, Neuromuscular Re-education, Patient/Caregiver Education, Self-Care/Home Management,Soft Tissue Mobilization, Therapeutic Exercises Next Visit Focus/Plan Next Note Type Treatment Note Next Visit Plan Gait training, strengthening
--- NOTE | 2021-05-26 16:50 | PT.OTN ---
Current Diagnoses Other acquired deformities of right foot (05/26/21) Muscle weakness (generalized) (05/26/21) Pain in unspecified lower leg (05/26/21) Physical Therapy Treatment Note PT-OP-A Visit Information Start: 04/28/21 15:33 Freq: Status: Active Protocol: Document 05/26/21 16:00 DCW (Rec: 05/26/21 16:50 DCW [id number]) Out-Patient Physical Therapy Visit Information Visit Information Visit Type Treatment Note Visit Start Time 16:00 Visit Stop Time 16:45 Total Visit Minutes 45 Visit Number 5 Number of ACQUISITIONS EDITOR Visits 0 Evaluation Information Evaluation Date 04/28/21 PT-OP-B Current Condition Start: 04/28/21 15:33 Freq: Status: Active Protocol: Document 04/28/21 14:30 DCW (Rec: 04/28/21 15:46 DCW [id number]) Current Condition History of Current Condition Onset Date Multi-year history Current Complaints knee, dejesus, and ankle pain, R> L History of Current Condition Pt is a 71 year old female presenting with a 2 year history of worsening anterior dejesus pain. Pt reports she has a constant, low-level pain in her right leg, which worsens with activity. Left leg also begins to hurt with activity. Pt reports she has not found anything that helps relieve pain, other than mild relief with Voltaren gel, which she has not been using recently. Notes she has difficulty on stairs when leading with the right foot, and although she used to enjoy ballroom dancing , she is now unable to participate due to pain. 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 Still easier to ascend stairs, but this seems to be the only overall change. PT-OP-F Manual Assessment Start: 04/28/21 15:33 Freq: Status: Active Protocol: Document 04/28/21 14:30 DCW (Rec: 04/28/21 16:10 DCW [id number]) Manual Assessments Soft Tissue Assessment Soft Tissue Mobility Assessment Tenderness to palpation 2/4 - pain with wincing along bilateral anterior tib and paroneals. Joint Mobility Assessment Joint Mobility Assessment Navicular bone drops 1 cm L and 1.2 cm R from sitting-> standing PT-OP-G Mobility & Gait Start: 04/28/21 15:33 Freq: Status: Active Protocol: Document 04/28/21 14:30 DCW (Rec: 04/28/21 16:10 DCW [id number]) OP Gait Assessment Gait Gait Assistance Required: Independent Assistive Devices Assistive Device None Orthotic/Prosthetic Devices or Brace: Yes Gait Deviations General Gait Pattern Antalgic Comments Gait Comments Ambulates with R heel lift. Bilateral excessive pronation in feet. R heel whip during swing phase. Bilateral trendelenberg. Stair Climbing Evaluation Devices Stair Climbing Assistive Devices None Technique/Endurance Stair Climbing Direction Ascend and Descend Stair Climbing Technique Step to Step PT-OP-J Posture/Palpation/Skin Start: 04/28/21 15:33 Freq: Status: Active Protocol: Document 04/28/21 14:30 DCW (Rec: 04/28/21 16:10 DCW [id number]) Posture Evaluation Position Standing Ankle/Foot Posture (L) Pronated,(R) Pronated Foot Arch (L) Low Arch,(R) Low Arch PT-OP-M Strength Start: 04/28/21 15:33 Freq: Status: Active Protocol: Document 04/28/21 14:30 DCW (Rec: 04/28/21 16:10 DCW [id number]) Hip Strength Hip Manual Muscle Testing Right Flexion (L2) 5 Normal Extension (S1) 4 Good Abduction 4 Good Adduction 4 Good External Rotation 4 Good Internal Rotation 4 Good Left Flexion (L2) 5 Normal Extension (S1) 4 Good Abduction 4 Good Adduction 4 Good External Rotation 4 Good Internal Rotation 4 Good Knee Strength Knee Manual Muscle Testing Right Flexion (S2) 4+ Good+ Extension (L3) 4+ Good+ Left Flexion (S2) 4+ Good+ Extension (L3) 4+ Good+ Ankle/Foot Strength Ankle and Foot Manual Muscle Testing Right Dorsiflexion (L4) 4+ Good+ Plantarflexion (S1) 4+ Good+ Inversion 4+ Good+ Eversion (S1) 4+ Good+ Left Dorsiflexion (L4) 4+ Good+ Plantarflexion (S1) 4+ Good+ Inversion 4+ Good+ Eversion (S1) 4+ Good+ PT-OP-Q Treatments Start: 04/28/21 15:33 Freq: Status: Active Protocol: Document 05/26/21 16:00 DCW (Rec: 05/26/21 16:50 DCW [id number]) Cardio Equipment Recumbent Elliptical (Biodex) Duration (Minutes) 4 Resistance 4 Seat Position 9 Gym Equipment Shuttle Recovery Bilateral Heel Raises Resistance 62# Unilateral Squats Resistance 62# Bilateral Squats Resistance 100# Manual Therapy Treatment Soft Tissue Mobilization 1 Body Location B Anterior Tib Mobilization Type Sustained Pressure,Trigger Point Release Intensity/Depth Moderate Body Position Sitting Joint Mobilizations 1 Joint Navicular mobs Grade III PT-OP-T Assessment and Plan Start: 04/28/21 15:33 Freq: Status: Active Protocol: Document 05/26/21 16:00 DCW (Rec: 05/26/21 16:50 DCW [id number]) Physical Therapy Assessment Impairments Impairments Functional Activities, Functional Mobility,Gait,Soft Tissue Mobility,Strength Goals Two Impairment Pt navicular bone drops 1 cm bilaterally in standing Regulatory Consultant Goal (LTG) Pt to demonstrate a navicular drop of less than 0.5 cm bilaterally LTG Duration 05/29/21 One Impairment Pt does not have an appropriate home exercise program Short Term Goal (STG) Pt to be independent and compliant with an appropriate HEP STG Duration 05/12/21 Assessment Summary Assessment Still having some increased tone and nodules along medial edge of proximal tibia, but less tone elsewhere along anterior tib. Physical Therapy Plan Frequency and Duration Frequency of Treatment 1x/Week Duration of Treatment Two months Plan of Care Start Date 04/28/21 Plan of Care End Date 05/29/21 Therapeutic Interventions Therapeutic Interventions Gait Training,Home Exercise Program,Manual Therapy, Neuromuscular Re-education, Patient/Caregiver Education, Self-Care/Home Management,Soft Tissue Mobilization, Therapeutic Exercises Next Visit Focus/Plan Next Note Type Treatment Note Next Visit Plan Gait training, strengthening
--- NOTE | 2021-06-02 16:52 | PT.OTN ---
Current Diagnoses Other acquired deformities of right foot (06/02/21) Muscle weakness (generalized) (06/02/21) Pain in unspecified lower leg (06/02/21) Physical Therapy Treatment Note PT-OP-A Visit Information Start: 04/28/21 15:33 Freq: Status: Active Protocol: Document 06/02/21 16:02 DCW (Rec: 06/02/21 16:51 DCW [id number]) Out-Patient Physical Therapy Visit Information Visit Information Visit Type Treatment Note Visit Start Time 16:02 Visit Stop Time 16:45 Total Visit Minutes 43 Visit Number 6 Number of WOOD BORING MACHINE OPERATOR Visits 0 Evaluation Information Evaluation Date 04/28/21 PT-OP-B Current Condition Start: 04/28/21 15:33 Freq: Status: Active Protocol: Document 04/28/21 14:30 DCW (Rec: 04/28/21 15:46 DCW [id number]) Current Condition History of Current Condition Onset Date Multi-year history Current Complaints knee, dejesus, and ankle pain, R> L History of Current Condition Pt is a 71 year old female presenting with a 2 year history of worsening anterior dejesus pain. Pt reports she has a constant, low-level pain in her right leg, which worsens with activity. Left leg also begins to hurt with activity. Pt reports she has not found anything that helps relieve pain, other than mild relief with Voltaren gel, which she has not been using recently. Notes she has difficulty on stairs when leading with the right foot, and although she used to enjoy ballroom dancing , she is now unable to participate due to pain. 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 The lower part is less painful, but theres more of an emphasis right here ( proximal anterior calf). Patient Reported Progress Same PT-OP-F Manual Assessment Start: 04/28/21 15:33 Freq: Status: Active Protocol: Document 04/28/21 14:30 DCW (Rec: 04/28/21 16:10 DCW [id number]) Manual Assessments Soft Tissue Assessment Soft Tissue Mobility Assessment Tenderness to palpation 2/4 - pain with wincing along bilateral anterior tib and paroneals. Joint Mobility Assessment Joint Mobility Assessment Navicular bone drops 1 cm L and 1.2 cm R from sitting-> standing PT-OP-G Mobility & Gait Start: 04/28/21 15:33 Freq: Status: Active Protocol: Document 04/28/21 14:30 DCW (Rec: 04/28/21 16:10 DCW [id number]) OP Gait Assessment Gait Gait Assistance Required: Independent Assistive Devices Assistive Device None Orthotic/Prosthetic Devices or Brace: Yes Gait Deviations General Gait Pattern Antalgic Comments Gait Comments Ambulates with R heel lift. Bilateral excessive pronation in feet. R heel whip during swing phase. Bilateral trendelenberg. Stair Climbing Evaluation Devices Stair Climbing Assistive Devices None Technique/Endurance Stair Climbing Direction Ascend and Descend Stair Climbing Technique Step to Step PT-OP-J Posture/Palpation/Skin Start: 04/28/21 15:33 Freq: Status: Active Protocol: Document 04/28/21 14:30 DCW (Rec: 04/28/21 16:10 DCW [id number]) Posture Evaluation Position Standing Ankle/Foot Posture (L) Pronated,(R) Pronated Foot Arch (L) Low Arch,(R) Low Arch PT-OP-M Strength Start: 04/28/21 15:33 Freq: Status: Active Protocol: Document 04/28/21 14:30 DCW (Rec: 04/28/21 16:10 DCW [id number]) Hip Strength Hip Manual Muscle Testing Right Flexion (L2) 5 Normal Extension (S1) 4 Good Abduction 4 Good Adduction 4 Good External Rotation 4 Good Internal Rotation 4 Good Left Flexion (L2) 5 Normal Extension (S1) 4 Good Abduction 4 Good Adduction 4 Good External Rotation 4 Good Internal Rotation 4 Good Knee Strength Knee Manual Muscle Testing Right Flexion (S2) 4+ Good+ Extension (L3) 4+ Good+ Left Flexion (S2) 4+ Good+ Extension (L3) 4+ Good+ Ankle/Foot Strength Ankle and Foot Manual Muscle Testing Right Dorsiflexion (L4) 4+ Good+ Plantarflexion (S1) 4+ Good+ Inversion 4+ Good+ Eversion (S1) 4+ Good+ Left Dorsiflexion (L4) 4+ Good+ Plantarflexion (S1) 4+ Good+ Inversion 4+ Good+ Eversion (S1) 4+ Good+ PT-OP-Q Treatments Start: 04/28/21 15:33 Freq: Status: Active Protocol: Document 06/02/21 16:02 DCW (Rec: 06/02/21 16:51 DCW [id number]) Cardio Equipment Recumbent Elliptical (Biodex) Duration (Minutes) 4 Resistance 5 Seat Position 9 Therapeutic Exercises Standing Exercises 1 Standing Exercise Name Heel raises Manual Therapy Treatment Soft Tissue Mobilization 1 Body Location B Anterior Tib Mobilization Type Sustained Pressure,Trigger Point Release Intensity/Depth Moderate Body Position Sitting Joint Mobilizations 1 Joint Navicular mobs Grade III Taping 1 Body Location R patella Type of Tape Kinesio Tape Comments Y tape distal->proximal around patella, I strip horizontal across patella tendon PT-OP-T Assessment and Plan Start: 04/28/21 15:33 Freq: Status: Active Protocol: Document 06/02/21 16:02 DCW (Rec: 06/02/21 16:51 DCW [id number]) Physical Therapy Assessment Impairments Impairments Functional Activities, Functional Mobility,Gait,Soft Tissue Mobility,Strength Goals Two Impairment Pt navicular bone drops 1 cm bilaterally in standing Mcfp Goal (LTG) Pt to demonstrate a navicular drop of less than 0.5 cm bilaterally LTG Duration 05/29/21 One Impairment Pt does not have an appropriate home exercise program Short Term Goal (STG) Pt to be independent and compliant with an appropriate HEP STG Duration 05/12/21 Assessment Summary Assessment Pt still experiencing unusual symptoms across anterior lower leg, random sharp shooting pain occasionally during palpation. Trial of K-tape for patellar support on R side to determine if this helps decrease pain. Should have another 3-4 visits to continue to decrease tone and improve ankle positioning, but may benefit from eventual return to PCP for further imaging Physical Therapy Plan Frequency and Duration Frequency of Treatment 1x/Week Duration of Treatment Two months Plan of Care Start Date 06/02/21 Plan of Care End Date 08/02/21 Therapeutic Interventions Therapeutic Interventions Gait Training,Home Exercise Program,Manual Therapy, Neuromuscular Re-education, Patient/Caregiver Education, Self-Care/Home Management,Soft Tissue Mobilization, Therapeutic Exercises Next Visit Focus/Plan Next Note Type Treatment Note Next Visit Plan Gait training, strengthening
--- NOTE | 2021-06-09 16:51 | PT.OTN ---
Current Diagnoses Other acquired deformities of right foot (06/09/21) Muscle weakness (generalized) (06/09/21) Pain in unspecified lower leg (06/09/21) Physical Therapy Treatment Note PT-OP-A Visit Information Start: 04/28/21 15:33 Freq: Status: Active Protocol: Document 06/09/21 16:00 DCW (Rec: 06/09/21 16:51 DCW [id number]) Out-Patient Physical Therapy Visit Information Visit Information Visit Type Treatment Note Visit Start Time 16:00 Visit Stop Time 16:45 Total Visit Minutes 45 Visit Number 7 Number of SENIOR IT ENGINEER Visits 0 Evaluation Information Evaluation Date 04/28/21 PT-OP-B Current Condition Start: 04/28/21 15:33 Freq: Status: Active Protocol: Document 04/28/21 14:30 DCW (Rec: 04/28/21 15:46 DCW [id number]) Current Condition History of Current Condition Onset Date Multi-year history Current Complaints knee, dejesus, and ankle pain, R> L History of Current Condition Pt is a 71 year old female presenting with a 2 year history of worsening anterior dejesus pain. Pt reports she has a constant, low-level pain in her right leg, which worsens with activity. Left leg also begins to hurt with activity. Pt reports she has not found anything that helps relieve pain, other than mild relief with Voltaren gel, which she has not been using recently. Notes she has difficulty on stairs when leading with the right foot, and although she used to enjoy ballroom dancing , she is now unable to participate due to pain. 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 Pt notes she especially noticed an increase in symptoms after removing the tape. PT-OP-F Manual Assessment Start: 04/28/21 15:33 Freq: Status: Active Protocol: Document 04/28/21 14:30 DCW (Rec: 04/28/21 16:10 DCW [id number]) Manual Assessments Soft Tissue Assessment Soft Tissue Mobility Assessment Tenderness to palpation 2/4 - pain with wincing along bilateral anterior tib and paroneals. Joint Mobility Assessment Joint Mobility Assessment Navicular bone drops 1 cm L and 1.2 cm R from sitting-> standing PT-OP-G Mobility & Gait Start: 04/28/21 15:33 Freq: Status: Active Protocol: Document 04/28/21 14:30 DCW (Rec: 04/28/21 16:10 DCW [id number]) OP Gait Assessment Gait Gait Assistance Required: Independent Assistive Devices Assistive Device None Orthotic/Prosthetic Devices or Brace: Yes Gait Deviations General Gait Pattern Antalgic Comments Gait Comments Ambulates with R heel lift. Bilateral excessive pronation in feet. R heel whip during swing phase. Bilateral trendelenberg. Stair Climbing Evaluation Devices Stair Climbing Assistive Devices None Technique/Endurance Stair Climbing Direction Ascend and Descend Stair Climbing Technique Step to Step PT-OP-J Posture/Palpation/Skin Start: 04/28/21 15:33 Freq: Status: Active Protocol: Document 04/28/21 14:30 DCW (Rec: 04/28/21 16:10 DCW [id number]) Posture Evaluation Position Standing Ankle/Foot Posture (L) Pronated,(R) Pronated Foot Arch (L) Low Arch,(R) Low Arch PT-OP-M Strength Start: 04/28/21 15:33 Freq: Status: Active Protocol: Document 04/28/21 14:30 DCW (Rec: 04/28/21 16:10 DCW [id number]) Hip Strength Hip Manual Muscle Testing Right Flexion (L2) 5 Normal Extension (S1) 4 Good Abduction 4 Good Adduction 4 Good External Rotation 4 Good Internal Rotation 4 Good Left Flexion (L2) 5 Normal Extension (S1) 4 Good Abduction 4 Good Adduction 4 Good External Rotation 4 Good Internal Rotation 4 Good Knee Strength Knee Manual Muscle Testing Right Flexion (S2) 4+ Good+ Extension (L3) 4+ Good+ Left Flexion (S2) 4+ Good+ Extension (L3) 4+ Good+ Ankle/Foot Strength Ankle and Foot Manual Muscle Testing Right Dorsiflexion (L4) 4+ Good+ Plantarflexion (S1) 4+ Good+ Inversion 4+ Good+ Eversion (S1) 4+ Good+ Left Dorsiflexion (L4) 4+ Good+ Plantarflexion (S1) 4+ Good+ Inversion 4+ Good+ Eversion (S1) 4+ Good+ PT-OP-Q Treatments Start: 04/28/21 15:33 Freq: Status: Active Protocol: Document 06/09/21 16:00 DCW (Rec: 06/09/21 16:51 DCW [id number]) Cardio Equipment Recumbent Elliptical (Biodex) Duration (Minutes) 4 Resistance 5 Seat Position 9 Gym Equipment Shuttle Recovery Bilateral Heel Raises Resistance 62# Unilateral Squats Resistance 62# Bilateral Squats Resistance 100# Manual Therapy Treatment Soft Tissue Mobilization 1 Body Location B Anterior Tib Mobilization Type Sustained Pressure,Trigger Point Release Intensity/Depth Moderate Body Position Sitting Joint Mobilizations 1 Joint Navicular mobs Grade III Taping 1 Body Location B patella Type of Tape Kinesio Tape Comments Y tape distal->proximal around patella, I strip horizontal across patella tendon PT-OP-T Assessment and Plan Start: 04/28/21 15:33 Freq: Status: Active Protocol: Document 06/09/21 16:00 DCW (Rec: 06/09/21 16:51 DCW [id number]) Physical Therapy Assessment Impairments Impairments Functional Activities, Functional Mobility,Gait,Soft Tissue Mobility,Strength Goals Two Impairment Pt navicular bone drops 1 cm bilaterally in standing Web Operations Lead Goal (LTG) Pt to demonstrate a navicular drop of less than 0.5 cm bilaterally LTG Duration 05/29/21 One Impairment Pt does not have an appropriate home exercise program Short Term Goal (STG) Pt to be independent and compliant with an appropriate HEP STG Duration 05/12/21 Assessment Summary Assessment K-tape appears to have helped a bit over the past week. Noticeable difference between tone of right leg (which was taped) and left (which was not ). Applied bilateral K-tape today. Physical Therapy Plan Frequency and Duration Frequency of Treatment 1x/Week Duration of Treatment Two months Plan of Care Start Date 06/02/21 Plan of Care End Date 08/02/21 Therapeutic Interventions Therapeutic Interventions Gait Training,Home Exercise Program,Manual Therapy, Neuromuscular Re-education, Patient/Caregiver Education, Self-Care/Home Management,Soft Tissue Mobilization, Therapeutic Exercises Next Visit Focus/Plan Next Note Type Treatment Note Next Visit Plan Gait training, strengthening
--- NOTE | 2021-06-16 16:52 | PT.OTN ---
Current Diagnoses Other acquired deformities of right foot (06/16/21) Muscle weakness (generalized) (06/16/21) Pain in unspecified lower leg (06/16/21) Physical Therapy Treatment Note PT-OP-A Visit Information Start: 04/28/21 15:33 Freq: Status: Active Protocol: Document 06/16/21 16:02 DCW (Rec: 06/16/21 16:52 DCW [id number]) Out-Patient Physical Therapy Visit Information Visit Information Visit Type Treatment Note Visit Start Time 16:02 Visit Stop Time 16:45 Total Visit Minutes 43 Visit Number 8 Number of ROTARY KILN OPERATOR Visits 0 Evaluation Information Evaluation Date 04/28/21 PT-OP-B Current Condition Start: 04/28/21 15:33 Freq: Status: Active Protocol: Document 04/28/21 14:30 DCW (Rec: 04/28/21 15:46 DCW [id number]) Current Condition History of Current Condition Onset Date Multi-year history Current Complaints knee, dejesus, and ankle pain, R> L History of Current Condition Pt is a 71 year old female presenting with a 2 year history of worsening anterior dejesus pain. Pt reports she has a constant, low-level pain in her right leg, which worsens with activity. Left leg also begins to hurt with activity. Pt reports she has not found anything that helps relieve pain, other than mild relief with Voltaren gel, which she has not been using recently. Notes she has difficulty on stairs when leading with the right foot, and although she used to enjoy ballroom dancing , she is now unable to participate due to pain. 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, and that in late 2019, she had an LE x-ray which showed a 1.5 cm leg length discrepancy, right shorter than left Treatment Goals Patient/Caregiver Goals Eliminate pain, improve ability to ascend stairs PT-OP-C Subjective Start: 04/28/21 15:33 Freq: Status: Active Protocol: Document 06/16/21 16:02 DCW (Rec: 06/16/21 16:52 DCW [id number]) OP-PT Subjective Patient Comments Patient Comments Pt notes her k-tape only helped about 1/2 a day, but notes she was in a CPR class and on her knees, so that may have affected her knees PT-OP-F Manual Assessment Start: 04/28/21 15:33 Freq: Status: Active Protocol: Document 04/28/21 14:30 DCW (Rec: 04/28/21 16:10 DCW [id number]) Manual Assessments Soft Tissue Assessment Soft Tissue Mobility Assessment Tenderness to palpation 2/4 - pain with wincing along bilateral anterior tib and paroneals. Joint Mobility Assessment Joint Mobility Assessment Navicular bone drops 1 cm L and 1.2 cm R from sitting-> standing PT-OP-G Mobility & Gait Start: 04/28/21 15:33 Freq: Status: Active Protocol: Document 04/28/21 14:30 DCW (Rec: 04/28/21 16:10 DCW [id number]) OP Gait Assessment Gait Gait Assistance Required: Independent Assistive Devices Assistive Device None Orthotic/Prosthetic Devices or Brace: Yes Gait Deviations General Gait Pattern Antalgic Comments Gait Comments Ambulates with R heel lift. Bilateral excessive pronation in feet. R heel whip during swing phase. Bilateral trendelenberg. Stair Climbing Evaluation Devices Stair Climbing Assistive Devices None Technique/Endurance Stair Climbing Direction Ascend and Descend Stair Climbing Technique Step to Step PT-OP-J Posture/Palpation/Skin Start: 04/28/21 15:33 Freq: Status: Active Protocol: Document 04/28/21 14:30 DCW (Rec: 04/28/21 16:10 DCW [id number]) Posture Evaluation Position Standing Ankle/Foot Posture (L) Pronated,(R) Pronated Foot Arch (L) Low Arch,(R) Low Arch PT-OP-M Strength Start: 04/28/21 15:33 Freq: Status: Active Protocol: Document 04/28/21 14:30 DCW (Rec: 04/28/21 16:10 DCW [id number]) Hip Strength Hip Manual Muscle Testing Right Flexion (L2) 5 Normal Extension (S1) 4 Good Abduction 4 Good Adduction 4 Good External Rotation 4 Good Internal Rotation 4 Good Left Flexion (L2) 5 Normal Extension (S1) 4 Good Abduction 4 Good Adduction 4 Good External Rotation 4 Good Internal Rotation 4 Good Knee Strength Knee Manual Muscle Testing Right Flexion (S2) 4+ Good+ Extension (L3) 4+ Good+ Left Flexion (S2) 4+ Good+ Extension (L3) 4+ Good+ Ankle/Foot Strength Ankle and Foot Manual Muscle Testing Right Dorsiflexion (L4) 4+ Good+ Plantarflexion (S1) 4+ Good+ Inversion 4+ Good+ Eversion (S1) 4+ Good+ Left Dorsiflexion (L4) 4+ Good+ Plantarflexion (S1) 4+ Good+ Inversion 4+ Good+ Eversion (S1) 4+ Good+ PT-OP-Q Treatments Start: 04/28/21 15:33 Freq: Status: Active Protocol: Document 06/16/21 16:02 DCW (Rec: 06/16/21 16:52 DCW [id number]) Cardio Equipment Recumbent Elliptical (Biodex) Duration (Minutes) 4 Resistance 5 Seat Position 9 Gym Equipment Shuttle Recovery Bilateral Heel Raises Resistance 62# Unilateral Squats Resistance 62# Bilateral Squats Resistance 100# Manual Therapy Treatment Soft Tissue Mobilization 1 Body Location B Anterior Tib Mobilization Type Sustained Pressure,Trigger Point Release Intensity/Depth Moderate Body Position Sitting Joint Mobilizations 1 Joint Navicular mobs Grade III Taping 1 Body Location B patella Type of Tape Kinesio Tape Comments Y tape distal->proximal around patella, I strip horizontal across patella tendon PT-OP-T Assessment and Plan Start: 04/28/21 15:33 Freq: Status: Active Protocol: Document 06/16/21 16:02 DCW (Rec: 06/16/21 16:52 DCW [id number]) Physical Therapy Assessment Impairments Impairments Functional Activities, Functional Mobility,Gait,Soft Tissue Mobility,Strength Goals Two Impairment Pt navicular bone drops 1 cm bilaterally in standing Technology Support Analyst Goal (LTG) Pt to demonstrate a navicular drop of less than 0.5 cm bilaterally LTG Duration 05/29/21 One Impairment Pt does not have an appropriate home exercise program Short Term Goal (STG) Pt to be independent and compliant with an appropriate HEP STG Duration 05/12/21 Assessment Summary Assessment Slightly increased tone today, may be due to her CPR class on Saturday when she spent an extended time kneeling on the floor. Otherwise tolerating treatment well, reporting less frequent, less severe pain. Physical Therapy Plan Frequency and Duration Frequency of Treatment 1x/Week Duration of Treatment Two months Plan of Care Start Date 06/02/21 Plan of Care End Date 08/02/21 Therapeutic Interventions Therapeutic Interventions Gait Training,Home Exercise Program,Manual Therapy, Neuromuscular Re-education, Patient/Caregiver Education, Self-Care/Home Management,Soft Tissue Mobilization, Therapeutic Exercises Next Visit Focus/Plan Next Note Type Treatment Note Next Visit Plan Gait training, strengthening
--- NOTE | 2021-06-22 15:23 | PT.OTN ---
Current Diagnoses Other acquired deformities of right foot (06/22/21) Muscle weakness (generalized) (06/22/21) Pain in unspecified lower leg (06/22/21) Physical Therapy Treatment Note PT-OP-A Visit Information Start: 04/28/21 15:33 Freq: Status: Active Protocol: Document 06/22/21 14:30 DCW (Rec: 06/22/21 15:23 DCW [id number]) Out-Patient Physical Therapy Visit Information Visit Information Visit Type Treatment Note Visit Start Time 14:30 Visit Stop Time 15:15 Total Visit Minutes 45 Visit Number 9 Number of HARDWOOD FLOORING SPECIALIST Visits 0 Evaluation Information Evaluation Date 04/28/21 PT-OP-B Current Condition Start: 04/28/21 15:33 Freq: Status: Active Protocol: Document 04/28/21 14:30 DCW (Rec: 04/28/21 15:46 DCW [id number]) Current Condition History of Current Condition Onset Date Multi-year history Current Complaints knee, dejesus, and ankle pain, R> L History of Current Condition Pt is a 71 year old female presenting with a 2 year history of worsening anterior dejesus pain. Pt reports she has a constant, low-level pain in her right leg, which worsens with activity. Left leg also begins to hurt with activity. Pt reports she has not found anything that helps relieve pain, other than mild relief with Voltaren gel, which she has not been using recently. Notes she has difficulty on stairs when leading with the right foot, and although she used to enjoy ballroom dancing , she is now unable to participate due to pain. 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 PT-OP-F Manual Assessment Start: 04/28/21 15:33 Freq: Status: Active Protocol: Document 04/28/21 14:30 DCW (Rec: 04/28/21 16:10 [facility] [id number]) Manual Assessments Soft Tissue Assessment Soft Tissue Mobility Assessment Tenderness to palpation 2/4 - pain with wincing along bilateral anterior tib and paroneals. Joint Mobility Assessment Joint Mobility Assessment Navicular bone drops 1 cm L and 1.2 cm R from sitting-> standing PT-OP-G Mobility & Gait Start: 04/28/21 15:33 Freq: Status: Active Protocol: Document 04/28/21 14:30 DCW (Rec: 04/28/21 16:10 DCW [id number]) OP Gait Assessment Gait Gait Assistance Required: Independent Assistive Devices Assistive Device None Orthotic/Prosthetic Devices or Brace: Yes Gait Deviations General Gait Pattern Antalgic Comments Gait Comments Ambulates with R heel lift. Bilateral excessive pronation in feet. R heel whip during swing phase. Bilateral trendelenberg. Stair Climbing Evaluation Devices Stair Climbing Assistive Devices None Technique/Endurance Stair Climbing Direction Ascend and Descend Stair Climbing Technique Step to Step PT-OP-J Posture/Palpation/Skin Start: 04/28/21 15:33 Freq: Status: Active Protocol: Document 04/28/21 14:30 DCW (Rec: 04/28/21 16:10 [facility] [id number]) Posture Evaluation Position Standing Ankle/Foot Posture (L) Pronated,(R) Pronated Foot Arch (L) Low Arch,(R) Low Arch PT-OP-M Strength Start: 04/28/21 15:33 Freq: Status: Active Protocol: Document 04/28/21 14:30 DCW (Rec: 04/28/21 16:10 DC [id number]) Hip Strength Hip Manual Muscle Testing Right Flexion (L2) 5 Normal Extension (S1) 4 Good Abduction 4 Good Adduction 4 Good External Rotation 4 Good Internal Rotation 4 Good Left Flexion (L2) 5 Normal Extension (S1) 4 Good Abduction 4 Good Adduction 4 Good External Rotation 4 Good Internal Rotation 4 Good Knee Strength Knee Manual Muscle Testing Right Flexion (S2) 4+ Good+ Extension (L3) 4+ Good+ Left Flexion (S2) 4+ Good+ Extension (L3) 4+ Good+ Ankle/Foot Strength Ankle and Foot Manual Muscle Testing Right Dorsiflexion (L4) 4+ Good+ Plantarflexion (S1) 4+ Good+ Inversion 4+ Good+ Eversion (S1) 4+ Good+ Left Dorsiflexion (L4) 4+ Good+ Plantarflexion (S1) 4+ Good+ Inversion 4+ Good+ Eversion (S1) 4+ Good+ PT-OP-Q Treatments Start: 04/28/21 15:33 Freq: Status: Active Protocol: Document 06/22/21 14:30 DCW (Rec: 06/22/21 15:23 DCW [id number]) Cardio Equipment Recumbent Elliptical (Biodex) Duration (Minutes) 4 Resistance 5 Seat Position 9 Gym Equipment Shuttle Recovery Bilateral Heel Raises Resistance 62# Unilateral Squats Resistance 62# Bilateral Squats Resistance 100# Manual Therapy Treatment Soft Tissue Mobilization 1 Body Location B Anterior Tib Mobilization Type Sustained Pressure,Trigger Point Release Intensity/Depth Moderate Body Position Sitting Joint Mobilizations 1 Joint Navicular mobs Grade III Taping 1 Body Location B patella Type of Tape Kinesio Tape Comments Y tape distal->proximal around patella, I strip horizontal across patella tendon PT-OP-T Assessment and Plan Start: 04/28/21 15:33 Freq: Status: Active Protocol: Document 06/22/21 14:30 DCW (Rec: 06/22/21 15:23 DCW [id number]) Physical Therapy Assessment Impairments Impairments Functional Activities, Functional Mobility,Gait,Soft Tissue Mobility,Strength Goals Two Impairment Pt navicular bone drops 1 cm bilaterally in standing [facility] Goal (LTG) Pt to demonstrate a navicular drop of less than 0.5 cm bilaterally LTG Duration 05/29/21 One Impairment Pt does not have an appropriate home exercise program Short Term Goal (STG) Pt to be independent and compliant with an appropriate HEP STG Duration 05/12/21 Assessment Summary Assessment Pt largely unchanged today, tone and ankle support are both improved, however pt not seeing much improvement in symptoms. Pt requested therapist contact her chiropractor to discuss her case, agreed to sign medical release. Physical Therapy Plan Frequency and Duration Frequency of Treatment 1x/Week Duration of Treatment Two months Plan of Care Start Date 06/02/21 Plan of Care End Date 08/02/21 Therapeutic Interventions Therapeutic Interventions Gait Training,Home Exercise Program,Manual Therapy, Neuromuscular Re-education, Patient/Caregiver Education, Self-Care/Home Management,Soft Tissue Mobilization, Therapeutic Exercises Next Visit Focus/Plan Next Note Type Treatment Note Next Visit Plan Gait training, strengthening
--- NOTE | 2021-06-30 15:17 | PT.OTN ---
Current Diagnoses Other acquired deformities of right foot (06/30/21) Muscle weakness (generalized) (06/30/21) Pain in unspecified lower leg (06/30/21) Physical Therapy Treatment Note PT-OP-A Visit Information Start: 04/28/21 15:33 Freq: Status: Active Protocol: Document 06/30/21 14:30 DCW (Rec: 06/30/21 15:17 DCW [id number]) Out-Patient Physical Therapy Visit Information Visit Information Visit Type Treatment Note Visit Start Time 14:30 Visit Stop Time 15:15 Total Visit Minutes 45 Visit Number 10 Number of REPAIRER RESISTANCE WELDING MACHINES Visits 0 Evaluation Information Evaluation Date 04/28/21 PT-OP-B Current Condition Start: 04/28/21 15:33 Freq: Status: Active Protocol: Document 04/28/21 14:30 DCW (Rec: 04/28/21 15:46 DCW [id number]) Current Condition History of Current Condition Onset Date Multi-year history Current Complaints knee, dejesus, and ankle pain, R> L History of Current Condition Pt is a 71 year old female presenting with a 2 year history of worsening anterior dejesus pain. Pt reports she has a constant, low-level pain in her right leg, which worsens with activity. Left leg also begins to hurt with activity. Pt reports she has not found anything that helps relieve pain, other than mild relief with Voltaren gel, which she has not been using recently. Notes she has difficulty on stairs when leading with the right foot, and although she used to enjoy ballroom dancing , she is now unable to participate due to pain. 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 PT-OP-F Manual Assessment Start: 04/28/21 15:33 Freq: Status: Active Protocol: Document 04/28/21 14:30 DCW (Rec: 04/28/21 16:10 DCW [id number]) Manual Assessments Soft Tissue Assessment Soft Tissue Mobility Assessment Tenderness to palpation 2/4 - pain with wincing along bilateral anterior tib and paroneals. Joint Mobility Assessment Joint Mobility Assessment Navicular bone drops 1 cm L and 1.2 cm R from sitting-> standing PT-OP-G Mobility & Gait Start: 04/28/21 15:33 Freq: Status: Active Protocol: Document 04/28/21 14:30 DCW (Rec: 04/28/21 16:10 DCW [id number]) OP Gait Assessment Gait Gait Assistance Required: Independent Assistive Devices Assistive Device None Orthotic/Prosthetic Devices or Brace: Yes Gait Deviations General Gait Pattern Antalgic Comments Gait Comments Ambulates with R heel lift. Bilateral excessive pronation in feet. R heel whip during swing phase. Bilateral trendelenberg. Stair Climbing Evaluation Devices Stair Climbing Assistive Devices None Technique/Endurance Stair Climbing Direction Ascend and Descend Stair Climbing Technique Step to Step PT-OP-J Posture/Palpation/Skin Start: 04/28/21 15:33 Freq: Status: Active Protocol: Document 04/28/21 14:30 DCW (Rec: 04/28/21 16:10 DCW [id number]) Posture Evaluation Position Standing Ankle/Foot Posture (L) Pronated,(R) Pronated Foot Arch (L) Low Arch,(R) Low Arch PT-OP-M Strength Start: 04/28/21 15:33 Freq: Status: Active Protocol: Document 04/28/21 14:30 DCW (Rec: 04/28/21 16:10 DCW [id number]) Hip Strength Hip Manual Muscle Testing Right Flexion (L2) 5 Normal Extension (S1) 4 Good Abduction 4 Good Adduction 4 Good External Rotation 4 Good Internal Rotation 4 Good Left Flexion (L2) 5 Normal Extension (S1) 4 Good Abduction 4 Good Adduction 4 Good External Rotation 4 Good Internal Rotation 4 Good Knee Strength Knee Manual Muscle Testing Right Flexion (S2) 4+ Good+ Extension (L3) 4+ Good+ Left Flexion (S2) 4+ Good+ Extension (L3) 4+ Good+ Ankle/Foot Strength Ankle and Foot Manual Muscle Testing Right Dorsiflexion (L4) 4+ Good+ Plantarflexion (S1) 4+ Good+ Inversion 4+ Good+ Eversion (S1) 4+ Good+ Left Dorsiflexion (L4) 4+ Good+ Plantarflexion (S1) 4+ Good+ Inversion 4+ Good+ Eversion (S1) 4+ Good+ PT-OP-Q Treatments Start: 04/28/21 15:33 Freq: Status: Active Protocol: Document 06/30/21 14:30 DCW (Rec: 06/30/21 15:17 DCW [id number]) Cardio Equipment Recumbent Elliptical (Biodex) Duration (Minutes) 4 Resistance 5 Seat Position 9 Gym Equipment Shuttle Recovery Bilateral Heel Raises Resistance 62# Unilateral Squats Resistance 62# Bilateral Squats Resistance 100# Therapeutic Exercises Sitting Exercises 1 Sitting Exercise Name ankle dorsiflexion Side bilateral Resistance Lv 2 Manual Therapy Treatment Soft Tissue Mobilization 1 Body Location B Anterior Tib Mobilization Type Sustained Pressure,Trigger Point Release Intensity/Depth Moderate Body Position Sitting Joint Mobilizations 1 Joint Navicular mobs Grade III PT-OP-T Assessment and Plan Start: 04/28/21 15:33 Freq: Status: Active Protocol: Document 06/30/21 14:30 DCW (Rec: 06/30/21 15:17 DCW [id number]) Physical Therapy Assessment Impairments Impairments Functional Activities, Functional Mobility,Gait,Soft Tissue Mobility,Strength Goals Two Impairment Pt navicular bone drops 1 cm bilaterally in standing Snf Goal (LTG) Pt to demonstrate a navicular drop of less than 0.5 cm bilaterally LTG Duration 05/29/21 One Impairment Pt does not have an appropriate home exercise program Short Term Goal (STG) Pt to be independent and compliant with an appropriate HEP STG Duration 05/12/21 Assessment Summary Assessment Discussed today possibility of compression stockings helping decrease edema in LEs, as well as motivation to increase activity to try to help increase LE blood flow. Physical Therapy Plan Frequency and Duration Frequency of Treatment 1x/Week Duration of Treatment Two months Plan of Care Start Date 06/02/21 Plan of Care End Date 08/02/21 Therapeutic Interventions Therapeutic Interventions Gait Training,Home Exercise Program,Manual Therapy, Neuromuscular Re-education, Patient/Caregiver Education, Self-Care/Home Management,Soft Tissue Mobilization, Therapeutic Exercises Next Visit Focus/Plan Next Note Type Treatment Note Next Visit Plan Gait training, strengthening
--- NOTE | 2021-07-06 17:39 | PT.OTN ---
Current Diagnoses Other acquired deformities of right foot (07/06/21) Muscle weakness (generalized) (07/06/21) Pain in unspecified lower leg (07/06/21) Physical Therapy Treatment Note PT-OP-A Visit Information Start: 04/28/21 15:33 Freq: Status: Active Protocol: Document 07/06/21 16:00 DCW (Rec: 07/06/21 16:55 DCW [id number]) Out-Patient Physical Therapy Visit Information Visit Information Visit Type Treatment Note Visit Start Time 16:00 Visit Stop Time 16:45 Total Visit Minutes 45 Visit Number 11 Number of WELL LO[employer]ING CAPTAIN MUD ANALYSIS Visits 0 Evaluation Information Evaluation Date 04/28/21 PT-OP-B Current Condition Start: 04/28/21 15:33 Freq: Status: Active Protocol: Document 04/28/21 14:30 DCW (Rec: 04/28/21 15:46 DCW [id number]) Current Condition History of Current Condition Onset Date Multi-year history Current Complaints knee, dejesus, and ankle pain, R> L History of Current Condition Pt is a 71 year old female presenting with a 2 year history of worsening anterior dejesus pain. Pt reports she has a constant, low-level pain in her right leg, which worsens with activity. Left leg also begins to hurt with activity. Pt reports she has not found anything that helps relieve pain, other than mild relief with Voltaren gel, which she has not been using recently. Notes she has difficulty on stairs when leading with the right foot, and although she used to enjoy ballroom dancing , she is now unable to participate due to pain. 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, and that in late 2019, she had an LE x-ray which showed a 1.5 cm leg length discrepancy, right shorter than left Treatment Goals Patient/Caregiver Goals Eliminate pain, improve ability to ascend stairs PT-OP-C Subjective Start: 04/28/21 15:33 Freq: Status: Active Protocol: Document 07/06/21 16:00 DCW (Rec: 07/06/21 16:55 DCW [id number]) OP-PT Subjective Patient Comments Patient Comments My legs do seem to be doing better with the compression stockings on. PT-OP-F Manual Assessment Start: 04/28/21 15:33 Freq: Status: Active Protocol: Document 07/06/21 16:00 DCW (Rec: 07/06/21 17:38 DCW [id number]) Manual Assessments Joint Mobility Assessment Joint Mobility Assessment Navicular bone drops 0.2 cm bilaterally changing from sitting->standing PT-OP-G Mobility & Gait Start: 04/28/21 15:33 Freq: Status: Active Protocol: Document 07/06/21 16:00 DCW (Rec: 07/06/21 17:39 DCW [id number]) OP Gait Assessment Comments Gait Comments Significantly less antalgia during ambulation, no longer demonstrating excessive pronation. PT-OP-J Posture/Palpation/Skin Start: 04/28/21 15:33 Freq: Status: Active Protocol: Document 04/28/21 14:30 DCW (Rec: 04/28/21 16:10 DCW [id number]) Posture Evaluation Position Standing Ankle/Foot Posture (L) Pronated,(R) Pronated Foot Arch (L) Low Arch,(R) Low Arch PT-OP-M Strength Start: 04/28/21 15:33 Freq: Status: Active Protocol: Document 04/28/21 14:30 DCW (Rec: 04/28/21 16:10 DCW [id number]) Hip Strength Hip Manual Muscle Testing Right Flexion (L2) 5 Normal Extension (S1) 4 Good Abduction 4 Good Adduction 4 Good External Rotation 4 Good Internal Rotation 4 Good Left Flexion (L2) 5 Normal Extension (S1) 4 Good Abduction 4 Good Adduction 4 Good External Rotation 4 Good Internal Rotation 4 Good Knee Strength Knee Manual Muscle Testing Right Flexion (S2) 4+ Good+ Extension (L3) 4+ Good+ Left Flexion (S2) 4+ Good+ Extension (L3) 4+ Good+ Ankle/Foot Strength Ankle and Foot Manual Muscle Testing Right Dorsiflexion (L4) 4+ Good+ Plantarflexion (S1) 4+ Good+ Inversion 4+ Good+ Eversion (S1) 4+ Good+ Left Dorsiflexion (L4) 4+ Good+ Plantarflexion (S1) 4+ Good+ Inversion 4+ Good+ Eversion (S1) 4+ Good+ PT-OP-Q Treatments Start: 04/28/21 15:33 Freq: Status: Active Protocol: Document 07/06/21 16:00 DCW (Rec: 07/06/21 16:55 DCW [id number]) Cardio Equipment Recumbent Elliptical (Biodex) Duration (Minutes) 4 Resistance 5 Seat Position 9 Gym Equipment Shuttle Recovery Bilateral Heel Raises Resistance 62# Unilateral Squats Resistance 62# Bilateral Squats Resistance 100# Therapeutic Exercises Sitting Exercises 1 Sitting Exercise Name ankle dorsiflexion Side bilateral Resistance Lv 2 Manual Therapy Treatment Soft Tissue Mobilization 1 Body Location B Anterior Tib Mobilization Type Sustained Pressure,Trigger Point Release Intensity/Depth Moderate Body Position Sitting Joint Mobilizations 1 Joint Navicular mobs Grade III PT-OP-T Assessment and Plan Start: 04/28/21 15:33 Freq: Status: Active Protocol: Document 07/06/21 16:00 DCW (Rec: 07/06/21 16:55 DCW [id number]) Physical Therapy Assessment Impairments Impairments Functional Activities, Functional Mobility,Gait,Soft Tissue Mobility,Strength Goals Two Impairment Pt navicular bone drops 1 cm bilaterally in standing Special Loan Officer Goal (LTG) Pt to demonstrate a navicular drop of less than 0.5 cm bilaterally LTG Duration Met One Impairment Pt does not have an appropriate home exercise program Short Term Goal (STG) Pt to be independent and compliant with an appropriate HEP STG Duration Met Progress Towards Goals Progress Towards Goals Goals Met Assessment Summary Assessment Pt has met her goals, minimal navicular drip in standing, improved stability with gait, however continues to have some complaints of tightness across her lower leg just distal to her patellar tendon. Does seem to be improving some with recent use of compression stockings. Discussed with pt that biggest benefit will likely be compression stocking combined with increased activity and getting out walking to help with circulation and decreasing lower extremity edema. Pt will likely be good to discharge to home program, as long as she maintains increased activity levels and compression stocking use. Physical Therapy Plan Frequency and Duration Frequency of Treatment 1x/Week Duration of Treatment Two months Plan of Care Start Date 06/02/21 Plan of Care End Date 08/02/21 Therapeutic Interventions Therapeutic Interventions Gait Training,Home Exercise Program,Manual Therapy, Neuromuscular Re-education, Patient/Caregiver Education, Self-Care/Home Management,Soft Tissue Mobilization, Therapeutic Exercises Discharge Physical Therapy Discharge Reasons Goals Met Next Visit Focus/Plan Next Note Type Discharge Summary
== END 2021-07-10 13:29 ==
LOC: PHYS 16:00
PROVIDERS: PCP Family Medicine; Referring Provider Family Medicine; Visit Provider Family Medicine
DX: M79.669 Pain in unspecified lower leg (principal); M21.6X1 Other acquired deformities of right foot; M62.81 Muscle weakness (generalized)
CPT/HCPCS: 97110; 97140; 97163; 97535

== ENCOUNTER → 2022-04-19 09:36 | Outpatient (CLI) | payer MEDICARE, OTHER, SELFPAY ==
[2022-04-19 11:31] LABS: Add Manual Diff / Slide Review NO; Basophils Absolute Auto 0 /uL (0-100); Basophils Percent Auto 0.5 % (0-2); Eosinophils Absolute Auto 200 /uL (0-450); Hematocrit 40.2 % (36-46); Hemoglobin 13.1 g/dL (12.0-16.0); Lymphocytes Absolute Auto 1300 /uL (1100-4500); Lymphocytes Percent Auto 29.7 % (25-40); Mean Corpuscular HGB Conc 32.6 % (30-36); Mean Corpuscular Hemoglobin 28.7 PG (26-34); Mean Corpuscular Volume 88.1 fL (80-100); Monocytes Absolute Auto 300 /uL (0-900); Monocytes Percent Auto 7.7 % (3-14); Neutrophils Absolute Auto 2600 /uL (1500-7000); Neutrophils Percent Auto 58.1 % (50-75); Platelet Count 122 X10^3/uL (150-400); Red Blood Cell Count 4.56 X10^6/uL (4.0-5.2); Red Cell Distribution Width 14.6 % (11.6-14.8); White Blood Cell Count 4.5 X10^3/uL (4.5-11.0)
[2022-04-19 11:46] LABS: Hemoglobin A1C% w Est Avg Glu 6.7 % (4.0-6.0)
[2022-04-19 12:44] LABS: Alanine Aminotransferase 23 IU/L (<35); Alkaline Phosphatase 97 U/L (38-126); Aspartate Aminotransferase 30 IU/L (14-36); BUN Creatinine Ratio 24.6 (6-22); Bilirubin Total 0.4 mg/dL (0.2-1.3); Blood Urea Nitrogen 15 mg/dL (7-17); Calcium 9.3 mg/dL (8.4-10.2); Carbon Dioxide 33 mmol/L (22-32); Chloride 101 mmol/L (98-107); Cholesterol 147 mg/dL (140-199); Estimated Glomerular Filt Rate > 60 mL/min (>60); Glucose 105 mg/dL (80-110); HDL Cholesterol 39 mg/dL (40-60); HEMOLYSIS < 15 (0-50); LDL Cholesterol Calculated 86 mg/dL (<100); Sodium 140 mmol/L (137-145); Total Protein 6.4 g/dL (6.3-8.2); Triglycerides 111 mg/dL (35-150)
[2022-04-20 17:13] LABS: Albumin Globulin Ratio 1.7 (1.0-2.8); Globulin 2.4 g/dL (1.7-4.1)
== END ==
PROVIDERS: PCP Family Medicine; Referring Provider Family Medicine; Visit Provider Family Medicine
DX: E11.9 Type 2 diabetes mellitus without complications (principal); Z68.43 Body mass index [BMI] 50.0-59.9, adult
CPT/HCPCS: 36415; 80053; 80061; 83036; 85025

== ENCOUNTER → 2022-04-24 11:55 | Outpatient (CLI) | payer MEDICARE, OTHER, SELFPAY ==
--- NOTE | 2022-04-24 11:57 | DI.RAD.S_ITS ---
PROCEDURE: XR SHOULDER LT MIN 2V INDICATIONS: pain TECHNIQUE: 3 views of the shoulder were acquired. COMPARISON: None. FINDINGS: Bones: No fractures or dislocations. 1.1 centimeters sclerotic lesion in the proximal humerus. Visualized ribs appear intact. Mild acromioclavicular and moderate glenohumeral joint osteoarthritis. Soft tissues: No suspicious soft tissue calcifications. IMPRESSION: Osteoarthritis. 1.1 centimeter sclerotic lesion in the proximal left humerus may represent bone island, however lesion has nonspecific imaging characteristics and other etiologies cannot be excluded by plain film radiograph. Recommend MRI of the left shoulder for definitive characterization. Dictated by: Amparo Cuadra MD, PhD on 04/24/2022 at 13:22 Approved by: Amparo Cuadra MD, PhD on 04/24/2022 at 13:23
--- NOTE | 2022-04-24 11:57 | DI.RAD.S_ITS ---
PROCEDURE: XR HIP W PEL IF DONE KATHIA MIN 4V INDICATIONS: pain TECHNIQUE: AP pelvis with lateral view(s) of the bilateral hip(s). COMPARISON: None. FINDINGS: Bones: No fractures or dislocations. Pelvic ring appears intact. No suspicious bony lesions. Mild bilateral hip osseous hypertrophy compatible with mild osteoarthritis. Soft tissues: The visualized bowel gas pattern is normal. No suspicious soft tissue calcifications. IMPRESSION: Mild osteoarthritis. Dictated by: Amparo Cuadra MD, PhD on 04/24/2022 at 13:21 Approved by: Amparo Cuadra MD, PhD on 04/24/2022 at 13:22
--- NOTE | 2022-04-24 11:57 | DI.RAD.S_ITS ---
PROCEDURE: XR SHOULDER RT MIN 2V INDICATIONS: bilateral shoulder pain TECHNIQUE: 3 views of the shoulder were acquired. COMPARISON: None. FINDINGS: Bones: No fractures or dislocations. No suspicious bony lesions. Visualized ribs appear intact. Moderate glenohumeral and acromioclavicular joint osteoarthritis. Soft tissues: No suspicious soft tissue calcifications. Surgical clips project over the right breast. IMPRESSION: Osteoarthritis. Dictated by: Amparo Cuadra MD, PhD on 04/24/2022 at 13:20 Approved by: Amparo Cuadra MD, PhD on 04/24/2022 at 13:21
== END ==
PROVIDERS: PCP Family Medicine; Referring Provider Family Medicine; Visit Provider Family Medicine
DX: M19.011 Primary osteoarthritis, right shoulder (principal); M19.012 Primary osteoarthritis, left shoulder; M16.0 Bilateral primary osteoarthritis of hip; M25.512 Pain in left shoulder; M25.511 Pain in right shoulder; M25.551 Pain in right hip; M25.552 Pain in left hip
CPT/HCPCS: 73030; 73522

== ENCOUNTER → 2022-05-30 16:06 | Outpatient (CLI) | payer MEDICARE, SELFPAY ==
[2022-05-30 17:19] LABS: Influenza A - CEPHEID Flu A NEGATIVE (NEGATIVE); Influenza B - CEPHEID Flu B NEGATIVE (NEGATIVE); Respiratory Syncytial Virus Negative (Negative)
[2022-05-30 17:24] LABS: COVID-19 CEPHEID 4-PLEX PCR Negative (Negative)
== END ==
PROVIDERS: PCP Family Medicine; Visit Provider Nurse Practitioner Family
DX: R05.1 Acute cough (principal)
CPT/HCPCS: 0241U

== ENCOUNTER → 2022-06-03 10:54 | Outpatient (CLI) | payer MEDICARE, OTHER, SELFPAY ==
--- NOTE | 2022-06-03 11:00 | DI.MRI.S_ITS ---
PROCEDURE: MR SHOULDER LT WO/W CON INDICATIONS: Abnormal x-ray bone lension TECHNIQUE: Noncontrast oblique coronal T1 spin echo and T2 fast spin echo with fat saturation, oblique sagittal T1 spin echo and T2 fast spin echo with fat saturation, axial T1 spin echo and T2 fast spin echo with fat saturation through the shoulder. Post-contrast oblique coronal, oblique sagittal, and axial T1 spin echo with fat saturation through the shoulder. COMPARISON: [facility], CR, XR SHOULDER LT MIN 2V, 04/24/2022, 12:12. FINDINGS: Image quality: Excellent. Rotator cuff: There is focal high grade partial bursal sided tearing of the supraspinatus tendon approximately 0.7 cm from its distal insertion measuring 0.4 cm in anterior-posterior dimension mild to moderate supraspinatus and infraspinatus tendinosis is noted. The teres minor tendon is intact. However, there is severe fatty infiltration of the teres minor muscle is most likely secondary to chronic denervation changes. No mass is seen along the course of the axillary nerve. Mild tendinosis of the distal subscapularis tendon. Bones and bursae: Small densely sclerotic lesion is again seen in the proximal humeral metadiaphysis without surrounding osseous edema or abnormal enhancement, consistent with a benign bone island. No suspicious osseous lesion is seen. No acute trabecular bone injury or fracture. Multifocal cartilage irregularity is seen in the glenohumeral joint including full-thickness cartilage loss at the superior medial humeral head and the superior glenoid. Marginal osteophyte formation is seen on both sides of the joint. Moderate degenerative changes are seen at the acromioclavicular joint. There is a small amount of subacromial/subdeltoid bursal fluid. A physiologic amount of glenohumeral joint fluid is present. Capsule and soft tissues: No suspicious soft tissue enhancement. There is mild diffuse labral degeneration without an acute displaced tear identified. The proximal biceps long head tendon demonstrates mild tendinosis. There is partial effacement of the normal fat signal in the rotator interval. The glenohumeral ligaments are intact. IMPRESSION: 1. Nonaggressive sclerotic lesion in the proximal humerus is consistent with a benign bone island. 2. Focal high-grade partial bursal sided tearing of the supraspinatus tendon approximately 0.7 cm from the distal insertion measuring 0.4 cm in anterior-posterior dimension, superimposed on mild to moderate diffuse rotator cuff tendinosis. 3. Severe fatty infiltration of the teres minor muscle is most likely secondary to chronic denervation changes. No mass is seen along the course of the axillary nerve. 4. Mild proximal biceps long head tendinosis. 5. Moderate to severe glenohumeral osteoarthrosis including full-thickness cartilage loss of the superior medial humeral head and superior glenoid. Diffuse labral degeneration without an acute tear. 6. Moderate acromioclavicular joint osteoarthrosis. 7. Small subacromial/subdeltoid bursal effusion or bursitis. Approved by: Delio Stauffer M.D. on 06/04/2022 at 8:27
--- NOTE | 2022-06-03 11:00 | DI.RAD.S_ITS ---
PROCEDURE: XR LUMBAR SPINE 2-3V INDICATIONS: Low back pain with sciatica TECHNIQUE: 3 views of the lumbar spine were acquired. COMPARISON: None. FINDINGS: Bones: 5 [id number] vertebrae are present. There is normal bony alignment. No vertebral body compression fractures. No suspicious bony lesions. Facet arthrosis the lumbar spine. Grade 1 retrolisthesis of L2-3 and grade 1 anterolisthesis of L4-5. Multilevel disc space narrowing consistent with disc disease Soft tissues: Overlying bowel gas pattern is normal. No suspicious soft tissue calcifications. 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 on 06/03/2022 at 11:38 Approved by: Richard Tyler M.D. on 06/03/2022 at 11:41
== END ==
PROVIDERS: PCP Family Medicine; Referring Provider Family Medicine; Visit Provider Family Medicine
DX: M47.816 Spondylosis without myelopathy or radiculopathy, lumbar region (principal); M51.26 Other intervertebral disc displacement, lumbar region; M75.112 Incomplete rotator cuff tear or rupture of left shoulder, not specified as traumatic; M19.012 Primary osteoarthritis, left shoulder; M89.9 Disorder of bone, unspecified; M25.512 Pain in left shoulder; R93.89 Abnormal findings on diagnostic imaging of other specified body structures; M54.9 Dorsalgia, unspecified; G89.29 Other chronic pain
CPT/HCPCS: 72100; 73223

== ENCOUNTER → 2022-10-11 09:51 | Outpatient (CLI) | payer MEDICARE, SELFPAY ==
[2022-10-11 12:31] LABS: Alanine Aminotransferase 29 IU/L (<35); Albumin 3.9 g/dL (3.5-5.0); Albumin Globulin Ratio 1.7 (1.0-2.8); Alkaline Phosphatase 102 U/L (38-126); Aspartate Aminotransferase 32 IU/L (14-36); BUN Creatinine Ratio 17.7 (6-22); Bilirubin Total 0.6 mg/dL (0.2-1.3); Blood Urea Nitrogen 11 mg/dL (7-17); Calcium 9.8 mg/dL (8.4-10.2); Carbon Dioxide 34 mmol/L (22-32); Chloride 101 mmol/L (98-107); Estimated Glomerular Filt Rate > 60 mL/min (>60); Globulin 2.3 g/dL (1.7-4.1); Glucose 100 mg/dL (80-110); HEMOLYSIS < 15 (0-50); Potassium 5.2 mmol/L (3.4-5.1); Sodium 139 mmol/L (137-145); Total Protein 6.2 g/dL (6.3-8.2)
[2022-10-12 04:30] LABS: Labcorp Hemoglobin (Hb) A1c 6.7 % (4.8-5.6)
== END ==
PROVIDERS: PCP Family Medicine; Referring Provider Family Medicine; Visit Provider Family Medicine
DX: E11.9 Type 2 diabetes mellitus without complications (principal)
CPT/HCPCS: 36415; 80053; 83036

== ENCOUNTER 2023-01-14 11:34 | Emergency (ER) | payer MEDICARE, SELFPAY ==
[2023-01-14] VITALS (8 sets, daily range): BP systolic 157–165; BP diastolic 76–83; PULSE 55–78; RESP 18; TEMP 36.8–37.5; O2SAT 97–99; BMI 44.8
[2023-01-14 12:34] LABS: Add Manual Diff / Slide Review NO; Basophils Absolute Auto 0 /uL (0-100); Basophils Percent Auto 0.6 % (0-2); Eosinophils Absolute Auto 100 /uL (0-450); Eosinophils Percent Auto 2.5 % (2-4); Hemoglobin 11.7 g/dL (12.0-16.0); Lymphocytes Absolute Auto 1200 /uL (1100-4500); Lymphocytes Percent Auto 25.3 % (25-40); Mean Corpuscular HGB Conc 32.7 % (30-36); Mean Corpuscular Hemoglobin 28.2 PG (26-34); Mean Corpuscular Volume 86.3 fL (80-100); Monocytes Absolute Auto 300 /uL (0-900); Neutrophils Absolute Auto 3200 /uL (1500-7000); Neutrophils Percent Auto 64.6 % (50-75); Platelet Count 201 X10^3/uL (150-400); Red Blood Cell Count 4.17 X10^6/uL (4.0-5.2); Red Cell Distribution Width 14.2 % (11.6-14.8); White Blood Cell Count 4.9 X10^3/uL (4.5-11.0)
[2023-01-14 12:35] LABS: Alanine Aminotransferase 26 IU/L (<35); Albumin Globulin Ratio 1.5 (1.0-2.8); Alkaline Phosphatase 96 U/L (38-126); Aspartate Aminotransferase 37 IU/L (14-36); BUN Creatinine Ratio 37.8 (6-22); Bilirubin Total 0.5 mg/dL (0.2-1.3); Blood Urea Nitrogen 17 mg/dL (7-17); Carbon Dioxide 28 mmol/L (22-32); Chloride 104 mmol/L (98-107); Estimated Glomerular Filt Rate > 60 mL/min (>60); Globulin 2.6 g/dL (1.7-4.1); Glucose 108 mg/dL (80-110); HEMOLYSIS 46 (0-50); Lipase 87 U/L (23-300); Potassium 4.4 mmol/L (3.4-5.1); Sodium 136 mmol/L (137-145); Total Protein 6.6 g/dL (6.3-8.2)
--- NOTE | 2023-01-14 16:58 | ED.ABDPAIN ---
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 Patient presents with complaint of 2-3 days of left lateral abdominal pain very localized she states sometimes it feels like there is a lump but not always. She states it is not consistent she can not always consistently cause it but seems to occur more when she is going upstairs and lifting up her left leg. Patient states otherwise she can not cause it every single time or even when she is going up stairs. She is not had similar symptoms in the past. It does not radiate elsewhere. No trauma no injuries no skin changes. No fevers or chills. No cold cough congestion. No chest pain or shortness of breath, no nausea or vomiting, no diarrhea constipation, no black or bloody stools, no dysuria urgency or frequency. She is not had similar issues in the past. She states no daily medical issues, takes a multivitamin and iron daily. She states prior surgeries include a Kate-en-Y in 2015, according to her chart she is also had bilateral knee replacement, they Maverick duct resection, and double mastectomy in 2018 without radiation or chemo. Patient has also noted up colon cancer with prior polypectomy but did not require resection. No tobacco, alcohol or illicit. Dr. Andres. Related Data Allergies Allergy/AdvReac Type Severity Reaction Status Date / Time diclofenac AdvReac Mild Chill, Verified 01/14/23 11:46 malaise Review of Systems Review of Systems ROS Unobtainable: All systems reviewed & are unremarkable except as noted in HPI and below Patient History Medical History Pain from breast implant Bone lesion Complication of breast implant Flatulence Bilateral hip pain Shoulder pain, bilateral Skin change Macedo hemangioma Lower leg pain IBS (irritable bowel syndrome) Bilateral lower extremity edema Diabetes Displacement of breast implant Vitamin D deficiency Family history of diabetes mellitus BMI 50.0-59.9, adult Rough skin Lymphedema (~2013) Sleep apnea (~2012) Chronic back pain Mumps Measles Chicken pox Anemia (~1989) Tinnitus (~2019) Fibroids (~1979) Swelling of thyroid gland (~2014) Colorectal cancer (~2016) Breast cancer (~2016) Surgical History Anesthesia History of breast surgery (~04/2018) History of breast implant (~07/2017) 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 (~04/2017) History of bilateral mastectomy (~01/2017) Status post left knee replacement (~01/2016) Status post right knee replacement (~05/2015) History of Kate-en-Y gastric bypass (~04/2013) History of surgery (~07/2011) History of hysterectomy (~1985) Thyroglossal duct cyst (~1968) History of tonsillectomy (~1956) Family History Father Cancer Mother Diabetes mellitus History of heart disease Hypertension Mental health problem Arthritis Brother CLL (chronic lymphocytic leukemia) Thyroid cancer Colon cancer Cancer Brother History of appendectomy Brother Arthritis Sister Diabetes mellitus Hypertension Arthritis Mental health problem Sister Diabetes mellitus Hypertension Arthritis Sister Breast cancer Grandfather Stroke Grandmother Diabetes mellitus History of heart disease Hypertension Social History household members: spouse Smoking Status: Never smoker alcohol intake: never substance use type: does not use Smoking Status: Never smoker alcohol intake frequency: 0-2 drinks per day Substance Use Type: does not use Exam Narrative Exam Narrative: GENERAL: Alert and oriented x three, well-appearing, obese female in mild distress. HEENT: Head normocephalic, atraumatic, EOMI, pupils reactive, face symmetric, moist mucous membranes NECK: Supple, full range of motion CARDIOVASCULAR: Regular rate and rhythm without murmurs, rubs or gallops. RESPIRATORY: Breath sounds equal bilaterally, no wheezes rales or rhonchi. ABDOMEN: Soft, nontender on general exam but to elicit a small amount of tenderness in the left lateral abdomen little bit higher up but still below the ribcage. I do not feel any clear lumps, masses or hernia defect. No erythema, no petechiae, no bruising, no rash or skin changes otherwise noted. Normoactive bowel sounds all 4 quadrants. No guarding or rebound, rigidity, no mass : No CVA tenderness EXTREMITIES: Normal range of motion, no clubbing or edema. Neurovascularly intact NEUROLOGICAL: Cranial nerves II through XII grossly intact. Moving all extremities SKIN: Warm, dry, no petechiae, no rashes or lesions. Initial Vital Signs Initial Vital Signs: Vital Signs Temperature 99.5 F 01/14/23 11:42 Pulse Rate 66 01/14/23 11:42 Respiratory Rate 18 01/14/23 11:42 Blood Pressure 165/76 H 01/14/23 11:42 Pulse Oximetry 97 01/14/23 11:42 Oxygen Delivery Method Room Air 01/14/23 11:42 Course Orders Ordered: ED Orders 01/14/23 11:49 EKG-12 Lead Stat 01/14/23 11:54 Complete Blood Count AUTO DIFF Stat Comprehensive Metabolic Panel Stat Lipase Stat 01/14/23 16:20 Urine Culture Stat 01/14/23 17:09 CT abdomen pelvis w con Stat Ondansetron HCl (Ondansetron 4 Mg/2 Ml Inj) 4 mg IV NOW PRN PRN Reason: Nausea And Vomiting Vital Signs Vital signs: Vital Signs - 8 hr 01/14/23 11:42 01/14/23 16:24 01/14/23 16:26 Temperature 99.5 F Pulse Rate 66 78 69 Respiratory Rate 18 Blood Pressure 165/76 H Pulse Oximetry 97 98 97 Oxygen Delivery Method Room Air 01/14/23 16:30 01/14/23 16:30 01/14/23 17:00 Temperature Pulse Rate 61 56 L Respiratory Rate Blood Pressure 157/80 H Pulse Oximetry 97 99 Oxygen Delivery Method 01/14/23 17:30 01/14/23 17:56 01/14/23 17:56 Temperature 98.2 F Pulse Rate 57 L 58 L Respiratory Rate Blood Pressure Pulse Oximetry 98 98 Oxygen Delivery Method 01/14/23 17:56 01/14/23 18:00 01/14/23 18:00 Temperature Pulse Rate 55 L Respiratory Rate 18 Blood Pressure 158/77 H 164/83 H Pulse Oximetry 99 Oxygen Delivery Method MDM - Abdominal Pain Lab Data 01/14/23 11:54 01/14/23 11:54 Labs: Lab Results 01/14/23 Range/Units 11:54 WBC 4.9 (4.5-11.0) X10^3/uL RBC 4.17 (4.0-5.2) X10^6/uL Hgb 11.7 L (12.0-16.0) g/dL Hct 36.0 (36-46) % MCV 86.3 (80-100) fL MCH 28.2 (26-34) PG MCHC 32.7 (30-36) % RDW 14.2 (11.6-14.8) % Plt Count 201 (150-400) X10^3/uL Neut % (Auto) 64.6 (50-75) % Lymph % (Auto) 25.3 (25-40) % [place] % (Auto) 7.0 (3-14) % Eos % (Auto) 2.5 (2-4) % Baso % (Auto) 0.6 (0-2) % Neut # (Auto) 3200 (6418-8565) /uL Lymph # (Auto) 1200 (7622-2512) /uL [place] # (Auto) 300 (0-900) /uL Eos # (Auto) 100 (0-450) /uL Baso # (Auto) 0 (0-100) /uL Sodium 136 L (137-145) mmol/L Potassium 4.4 (3.4-5.1) mmol/L Chloride 104 (98-107) mmol/L Carbon Dioxide 28 (22-32) mmol/L BUN 17 (7-17) mg/dL Creatinine 0.45 L (0.52-1.04) mg/dL Estimated GFR > 60 (>60) mL/min BUN/Creatinine Ratio 37.8 H (6-22) Glucose 108 (80-110) mg/dL Calcium 10.0 (8.4-10.2) mg/dL Total Bilirubin 0.5 (0.2-1.3) mg/dL AST 37 H (14-36) IU/L ALT 26 (<35) IU/L Alkaline Phosphatase 96 (38-126) U/L Total Protein 6.6 (6.3-8.2) g/dL Albumin 4.0 (3.5-5.0) g/dL Globulin 2.6 (1.7-4.1) g/dL Albumin/Globulin Ratio 1.5 (1.0-2.8) Lipase 87 (23-300) U/L Point of care testing: Urine Dip Bedside Urine Glucose Negative Bedside Urine Bilirubin - Negative Bedside Urine Ketone - Negative Urine Specific [place] 1.015 Bedside Urine Occult Blood - Negative Bedside Urine pH 7.5 Bedside Urine Protein - Negative Bedside Urine Urobilinogen - Negative Bedside Urine Nitrite - Negative Bedside Urine Leukocytes - Negative Esterase Imaging Data CT scan - abdomen/pelvis: Radiologist's Impression: Sandra lFanagan??72??F??1950 ? Allergy/Adv: diclofenac Close Abdomen/Pelvis CT (Signed) Jacobo Marques - 01/14/23 Shoulder MRI (Signed) Delio Stauffer - 06/03/22 Lumbar Spine X-Ray (Signed) Richard Tyler - 06/03/22 Shoulder X-Ray (Signed) Amparo Cuadra - 04/24/22 Shoulder X-Ray (Signed) Amparo Cuadra - 04/24/22 Hip X-Ray (Signed) Amparo Cuadra - 04/24/22 Vascular Ultrasound (Signed) Massimo Romero - 01/24/21 Chest X-Ray (Signed) Amparo Cuadra - 07/07/20 Bone Length Study (Signed) Jese Rayawn - 01/15/20 [place] [address] CT Scan Report Signed Patient: Sandra Flanagan MR#: [id number] : 1950 Acct:[id number] Age/Sex: 72 / F Date of Service: 01/14/23 Loc: ED Accession Number: [id number] Procedure: CT abdomen pelvis w con Ordering Provider: Lilian Rodríguez D.O. PROCEDURE: CT ABDOMEN PELVIS W CON INDICATIONS: left upper lateral abd pain, ? hernia diveriticulitis TECHNIQUE: After the administration of intravenous contrast, axial sections acquired from the lung bases to the pubic symphysis. Coronal and sagittal reformats were performed. For radiation dose reduction, the following was used: automated exposure control, adjustment of mA and/or kV according to patient size. COMPARISON: None. FINDINGS: Image quality: Excellent. Lung bases: Unremarkable. Partially visualized breast implants. Heart: Mild coronary artery calcifications. No cardiomegaly. ABDOMEN: Liver: Hypodense lesion within the right posterior hepatic lobe measuring 2.2 x 1.9 cm with intermediate Hounsfield units. Gallbladder: Unremarkable. Biliary ducts: Unremarkable. Pancreas: Simple cystic lesion within the tail the pancreas measuring 1.5 cm. Spleen: Unremarkable. Adrenal Glands: Indeterminate left adrenal nodule measuring 1.2 cm. No right adrenal nodules. Kidneys and Ureters: The kidneys enhance symmetrically without hydronephrosis. Nonspecific left perinephric stranding. Stomach and Bowel: Status post Kate-en-Y. Moderate burden of stool throughout the colon. Few diverticula without evidence of acute diverticulitis. Normal appendix. Peritoneum: No abnormal intraperitoneal fluid. No free air. Ventral Wall: No hernias. Abdominal Nodes: No retroperitoneal or mesenteric adenopathy by size criteria. Vessels: Aorta and inferior vena cava are normal in size. Atherosclerotic vascular calcifications. 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 PELVIS: Pelvic Organs: Hysterectomy. No adnexal masses.. Bladder: Decompressed, otherwise unremarkable. Pelvic Nodes: No enlarged lymph nodes. Miscellaneous: No hernias are seen. Bones: Degenerative changes of the spine. Decreased osseous mineralization. Grade 1 anterolisthesis of L4 on L5. IMPRESSION: 1. No cause for patient's pain is identified. 2. Nonspecific left perinephric stranding, consider urinalysis to exclude infection. 3. Indeterminate lesion within the posterior right hepatic lobe measuring 2.2 cm. Further evaluation with nonurgent ultrasound or liver protocol CT or MRI could be obtained. 4. Cystic lesion within the tail the pancreas measuring 1.5 cm, recommend nonurgent MRI for further evaluation. 5. Indeterminate left adrenal nodule measuring 1.2 cm. 6. 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 Recommend 1 year follow-up aortic ultrasound. Dictated by: Jacobo Marques M.D. on 01/14/2023 at 17:55 Approved by: Jacobo Marques M.D. on 01/14/2023 at 18:04 ECG Data Attestation: I personally reviewed and interpreted this ECG as follows: Interpretation: Sinus bradycardia rate of 59 DE 184 QRS 82 QTC [address] No acute ST elevation depression. MDM Narrative Medical decision making narrative: Labs including CBC show hemoglobin 11.7 white count of 4.9 platelets of 201 normal glucose normal electrolytes and potassium as well as other electrolytes. LFTs, lipase are negative. Point of care urine is negative. Patient had EKG with no acute changes appreciated. No priors for comparison. Patient's physical exam is overall reassuring, not able to palpate a hernia or mass although this seems most likely cause on examination but patient's habitus makes it somewhat difficult. After discussion patient is very well-appearing observation versus additional workup. Patient elects for CT imaging. CT shows left perinephric stranding, UA does not show clear infection. Indeterminate lesion right posterior hepatic lobe 2.2 cm can follow up with ultrasound, 60 lesion left pancreas recommend nonurgent MRI for further evaluation indeterminate left adrenal nodule aneurysmal dilation of right common iliac artery 2.6 cm recommend follow up aortic ultrasound in 1 year. Discussed with patient patient is nontender on examination urine is negative does have some stranding pain has currently resolved. We will have patient follow up for recheck. We will send urine for culture but will not start antibiotics at this time. CT findings including liver lesion, pancreatic cyst, adrenal nodule recommend for ultrasound or MR follow-up. Patient also had aneurysmal dilation of the right common iliac recommended for 1 year ultrasound follow-up. Discussed these findings with patient. Most of these findings are on the right side and her discomfort is very localized to the lateral left abdomen. Discussed findings with patient, she feels comfortable with this plan. Discharge Plan Departure Patient Disposition: Home Clinical Impression: Left lateral abdominal pain, Liver lesion, right lobe, Cyst of pancreas, Adrenal nodule, Aneurysm artery, iliac common Instructions: DI for Abdominal Pain-Adult Activity Restrictions/Additional Instructions: Your workup today did not show obvious change or hernia on the left, there is some stranding of the left kidney, your urine does not show clear signs of infection but was sent for culture. This typically takes 2-3 days to result and if positive for infection you would be contacted to start antibiotics. Incidentally your imaging found a lesion in the right side of the liver, cystic lesion in the pancreas as well as a left adrenal nodule, recommended to follow-up outpatient for MRI for further evaluation Also noted to have some aneurysmal dilation of the right common iliac artery and recommended have 1 year follow-up with ultrasound. Please contact your primary care physician to set up follow-up for these findings. Please return for fevers, new or worsening abdominal back or flank pain, lightheadedness or passing out, persistent vomiting, black or bloody stools, difficulty with urination or other new or concerning changes. Referrals: Cedric Andres DO [Primary Care Provider] - Stand Alone Forms: Patient Portal/API
--- NOTE | 2023-01-14 17:09 | DI.CT.S_ITS ---
PROCEDURE: CT ABDOMEN PELVIS W CON INDICATIONS: left upper lateral abd pain, ? hernia diveriticulitis TECHNIQUE: After the administration of intravenous contrast, axial sections acquired from the lung bases to the pubic symphysis. Coronal and sagittal reformats were performed. For radiation dose reduction, the following was used: automated exposure control, adjustment of mA and/or kV according to patient size. COMPARISON: None. FINDINGS: Image quality: Excellent. Lung bases: Unremarkable. Partially visualized breast implants. Heart: Mild coronary artery calcifications. No cardiomegaly. ABDOMEN: Liver: Hypodense lesion within the right posterior hepatic lobe measuring 2.2 x 1.9 cm with intermediate Hounsfield units. Gallbladder: Unremarkable. Biliary ducts: Unremarkable. Pancreas: Simple cystic lesion within the tail the pancreas measuring 1.5 cm. Spleen: Unremarkable. Adrenal Glands: Indeterminate left adrenal nodule measuring 1.2 cm. No right adrenal nodules. Kidneys and Ureters: The kidneys enhance symmetrically without hydronephrosis. Nonspecific left perinephric stranding. Stomach and Bowel: Status post Kate-en-Y. Moderate burden of stool throughout the colon. Few diverticula without evidence of acute diverticulitis. Normal appendix. Peritoneum: No abnormal intraperitoneal fluid. No free air. Ventral Wall: No hernias. Abdominal Nodes: No retroperitoneal or mesenteric adenopathy by size criteria. Vessels: Aorta and inferior vena cava are normal in size. Atherosclerotic vascular calcifications. 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 PELVIS: Pelvic Organs: Hysterectomy. No adnexal masses.. Bladder: Decompressed, otherwise unremarkable. Pelvic Nodes: No enlarged lymph nodes. Miscellaneous: No hernias are seen. Bones: Degenerative changes of the spine. Decreased osseous mineralization. Grade 1 anterolisthesis of L4 on L5. IMPRESSION: 1. No cause for patient's pain is identified. 2. Nonspecific left perinephric stranding, consider urinalysis to exclude infection. 3. Indeterminate lesion within the posterior right hepatic lobe measuring 2.2 cm. Further evaluation with nonurgent ultrasound or liver protocol CT or MRI could be obtained. 4. Cystic lesion within the tail the pancreas measuring 1.5 cm, recommend nonurgent MRI for further evaluation. 5. Indeterminate left adrenal nodule measuring 1.2 cm. 6. 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 Recommend 1 year follow-up aortic ultrasound. Dictated by: Jacobo Marques M.D. on 01/14/2023 at 17:55 Approved by: Jacobo Marques M.D. on 01/14/2023 at 18:04
== END 2023-01-14 19:00 | disposition home or self-care (01) ==
PROVIDERS: Emergency Provider Emergency Medicine; PCP Family Medicine
DX: I72.3 Aneurysm of iliac artery (principal); E27.8 Other specified disorders of adrenal gland; K86.2 Cyst of pancreas; K76.9 Liver disease, unspecified; R10.9 Unspecified abdominal pain
CPT/HCPCS: 36415; 74177; 80053; 81003; 83690; 85025; 87086; 93005; 93010; 99284

== ENCOUNTER → 2023-01-18 13:39 | Outpatient (CLI) | payer MEDICARE, SELFPAY ==
--- NOTE | 2023-01-18 13:40 | DI.MRI.S_ITS ---
PROCEDURE: MR ABDOMEN WO/W CON INDICATIONS: Abnormality of the liver pancreas, lesion L adrenal nodule TECHNIQUE: Coronal HASTE, axial 2D FLASH in- and [id number]; axial breath-hold T2 FSE. Dynamic axial VIBE during the administration of contrast; post-contrast coronal VIBE or 2D FLASH with fat saturation from the hepatic dome to the iliac crests. Optional diffusion weighted imaging and ADC may be performed. COMPARISON: [facility], CT, CT ABDOMEN PELVIS W CON, 01/14/2023, 17:14. FINDINGS: Image quality: Excellent. Lung bases: No basal pleural effusions. Heart size is normal. Liver: In segment 7, there is a T2 intermediate, T1 hypointense lesion measuring approximately 2.0 centimeter (series 4, image 18). This lesion does not demonstrate significant enhancement on the arterial or portal venous phase, but questionable peripheral nodular enhancement on the delayed phase (series 34, image 37). No restricted diffusion. Gallbladder and biliary tree: No gallstones or biliary dilation. Spleen: Normal size. Pancreas: No ductal dilation. T2 hyperintense cystic lesions within the pancreatic parenchyma, largest measuring 1.3 centimeters without internal nodularity (series 4, image 21). Adrenal glands: 1.5 centimeter left adrenal nodule with mild signal dropout on the out of phase sequence, most likely indicating a benign adenoma. Kidneys: No hydronephrosis. No solid mass. No complex renal cysts which requires follow-up. Nodes and vessels: No retroperitoneal or mesenteric adenopathy by size criteria. Aorta and inferior vena cava are normal in size. Bowel and peritoneum: Unenhanced bowel loops are normal in caliber. No free fluid. Bones and soft tissues: No ventral hernias. Bone marrow is normal in overall signal. IMPRESSION: T2 intermediate lesion along the posterior margin of segment 7 demonstrates atypical imaging properties, possibly delayed, peripheral nodular enhancement. Findings may indicate a sclerosing hemangioma, adenoma, atypical FNH, less likely lesions such as malignancy. Six-month follow-up with either CT or MRI should be considered to ensure stability. Multiple T2 hyperintense cystic lesions throughout the pancreatic parenchyma, largest measuring 1.3 centimeters. No associated nodularity or pancreatic ductal dilation. Findings probably represent a side branch IPMN. Recommend follow-up every 2 years for a total of 10 years, per ACR consensus guidelines. Dictated by: Rogers Angeles M.D. on 01/18/2023 at 16:13 Approved by: Rogers Angeles M.D. on 01/18/2023 at 16:44
== END ==
PROVIDERS: PCP Family Medicine; Referring Provider Family Medicine; Visit Provider Family Medicine
DX: R93.2 Abnormal findings on diagnostic imaging of liver and biliary tract (principal); K86.2 Cyst of pancreas; R10.9 Unspecified abdominal pain; K76.9 Liver disease, unspecified; E27.8 Other specified disorders of adrenal gland; K86.9 Disease of pancreas, unspecified; K86.89 Other specified diseases of pancreas
CPT/HCPCS: 74183

== ENCOUNTER → 2023-03-23 09:06 | Outpatient (CLI) | payer MEDICARE, SELFPAY ==
[2023-03-23 10:21] LABS: Add Manual Diff / Slide Review NO; Basophils Absolute Auto 0 /uL (0-100); Basophils Percent Auto 0.6 % (0-2); Eosinophils Absolute Auto 100 /uL (0-450); Eosinophils Percent Auto 2.2 % (2-4); Hematocrit 35.5 % (36-46); Hemoglobin 11.6 g/dL (12.0-16.0); Lymphocytes Absolute Auto 1500 /uL (1100-4500); Lymphocytes Percent Auto 33.6 % (25-40); Mean Corpuscular HGB Conc 32.7 % (30-36); Mean Corpuscular Hemoglobin 27.3 PG (26-34); Mean Corpuscular Volume 83.3 fL (80-100); Monocytes Absolute Auto 400 /uL (0-900); Neutrophils Absolute Auto 2400 /uL (1500-7000); Neutrophils Percent Auto 54.6 % (50-75); Platelet Count 179 X10^3/uL (150-400); Red Blood Cell Count 4.26 X10^6/uL (4.0-5.2); Red Cell Distribution Width 14.9 % (11.6-14.8); White Blood Cell Count 4.5 X10^3/uL (4.5-11.0)
[2023-03-23 10:35] LABS: Alanine Aminotransferase 25 IU/L (<35); Albumin 3.9 g/dL (3.5-5.0); Albumin Globulin Ratio 1.6 (1.0-2.8); Alkaline Phosphatase 96 U/L (38-126); Aspartate Aminotransferase 28 IU/L (14-36); BUN Creatinine Ratio 28.8 (6-22); Bilirubin Total 0.7 mg/dL (0.2-1.3); Blood Urea Nitrogen 17 mg/dL (7-17); Calcium 10.3 mg/dL (8.4-10.2); Carbon Dioxide 33 mmol/L (22-32); Chloride 101 mmol/L (98-107); Cholesterol 127 mg/dL (140-199); Estimated Glomerular Filt Rate > 60 mL/min (>60); Globulin 2.4 g/dL (1.7-4.1); Glucose 114 mg/dL (80-110); HDL Cholesterol 45 mg/dL (40-60); HEMOLYSIS < 15 (0-50); LDL Cholesterol Calculated 62 mg/dL (<100); Potassium 4.4 mmol/L (3.4-5.1); Sodium 138 mmol/L (137-145); Total Protein 6.3 g/dL (6.3-8.2); Triglycerides 99 mg/dL (35-150)
[2023-03-23 10:36] LABS: Hemoglobin A1C% w Est Avg Glu 7.1 % (4.0-6.0)
[2023-03-23 11:01] LABS: Vitamin D 25 Hydroxy (D3) 49.5 ng/mL (30.0-100.0)
== END ==
PROVIDERS: PCP Family Medicine; Referring Provider Family Medicine; Visit Provider Family Medicine
DX: E55.9 Vitamin D deficiency, unspecified (principal); E11.9 Type 2 diabetes mellitus without complications
CPT/HCPCS: 36415; 80053; 80061; 82306; 83036; 85025

== ENCOUNTER → 2023-05-24 17:04 | Outpatient (CLI) | payer MEDICARE, SELFPAY | PROVIDERS: PCP Family Medicine; Visit Provider Registered Nurse | DX: J02.9 Acute pharyngitis, unspecified (principal) | CPT/HCPCS: 87070 ==

== ENCOUNTER → 2023-06-04 11:09 | Outpatient (CLI) | payer MEDICARE, SELFPAY ==
--- NOTE | 2023-06-04 11:10 | DI.MRI.S_ITS ---
PROCEDURE: MR ABDOMEN WO/W CON INDICATIONS: abnormality liver, pancreas, Lesion, Left Adrenal Nodule TECHNIQUE: Coronal HASTE, axial 2D FLASH in- and [id number]; axial breath-hold T2 FSE. Dynamic axial VIBE during the administration of contrast; post-contrast coronal VIBE or 2D FLASH with fat saturation from the hepatic dome to the iliac crests. Optional diffusion weighted imaging and ADC may be performed. COMPARISON: [facility], MR, MR ABDOMEN WO/W CON, 01/18/2023, 14:00. FINDINGS: Image quality: Diagnostic, but there is [id number] motion artifact Lower chest: Lungs are not well evaluated on this study. Partially seen breast implants. Liver: A T2 hyperintense lesion is again seen in the posterior dome of segment 7 measuring 2.4 cm, stable from December 2022. No hypervascularity. There may be delayed phase fill-in. There is mild T2 signal. No diffusion restricting solid mass is identified. No discrete hypervascular lesion elsewhere. Gallbladder and biliary system: Unremarkable, nondilated Pancreas: No ductal dilation. Decreased conspicuity of the previously identified cystic lesion at the tail. Spleen: Nonenlarged Adrenals: Left adrenal nodule is not as well seen, likely due to motion artifact. This was previously suggested to be an adenoma. Kidneys: Small cysts. No hydronephrosis. No solid mass requiring follow-up. Vessels and lymph nodes: No abdominal aortic aneurysm. No pathologic lymph nodes by size criteria. Bowel and peritoneum: Moderate fecal loading. No pathologic ascites or bowel obstruction Body wall: Unremarkable Bones: Degenerative changes. No suspicious focal enhancement IMPRESSION: Focal hepatic lesion at the posterior portion of segment 7 again seen, stable compared to 01/18/2023. Stability is reassuring. A benign consideration is a thrombosed hemangioma. An indolent neoplasm is possible could but considered less likely. Continued imaging follow-up may be obtained at clinical discretion if the patient has any history of liver disease or another primary malignancy. The pancreatic tail cystic lesion is less conspicuous. The left adrenal nodule is probably stable. These findings may be obscured by motion artifact on this study. Other findings above. Dictated by: Ronald Monsalve M.D. on 06/04/2023 at 13:51 Approved by: Ronald Monsalve M.D. on 06/04/2023 at 13:58
== END ==
PROVIDERS: PCP Family Medicine; Referring Provider Family Medicine; Visit Provider Family Medicine
DX: K76.9 Liver disease, unspecified (principal); E27.8 Other specified disorders of adrenal gland; K86.2 Cyst of pancreas; N28.1 Cyst of kidney, acquired; R10.9 Unspecified abdominal pain; Z98.82 Breast implant status
CPT/HCPCS: 74183; A9579

== ENCOUNTER → 2023-06-28 18:01 | Outpatient (CLI) | payer MEDICARE, SELFPAY | PROVIDERS: PCP Family Medicine; Visit Provider Nurse Practitioner Family | DX: J02.9 Acute pharyngitis, unspecified (principal) | CPT/HCPCS: 87070; 87077 ==

== ENCOUNTER → 2023-09-16 17:13 | Outpatient (CLI) | payer MEDICARE, SELFPAY ==
[2023-09-16 18:28] LABS: Hemoglobin A1C% w Est Avg Glu 6.7 % (4.0-6.0)
[2023-09-16 18:37] LABS: Alanine Aminotransferase 25 IU/L (<35); Albumin 4.1 g/dL (3.5-5.0); Albumin Globulin Ratio 1.7 (1.0-2.8); Alkaline Phosphatase 102 U/L (38-126); Aspartate Aminotransferase 32 IU/L (14-36); BUN Creatinine Ratio 27.7 (6-22); Bilirubin Total 0.7 mg/dL (0.2-1.3); Blood Urea Nitrogen 18 mg/dL (7-17); Carbon Dioxide 33 mmol/L (22-32); Chloride 106 mmol/L (98-107); Estimated Glomerular Filt Rate > 60 mL/min (>60); Globulin 2.4 g/dL (1.7-4.1); Glucose 104 mg/dL (80-110); HEMOLYSIS < 15 (0-50); Potassium 4.8 mmol/L (3.4-5.1); Sodium 139 mmol/L (137-145); Total Protein 6.5 g/dL (6.3-8.2)
[2023-09-16 18:55] LABS: Creatinine Urine Random 67.02 mg/dL
[2023-09-16 19:05] LABS: Microalbumin Urine Random < 0.6 mg/dL (0-1.6)
== END ==
PROVIDERS: PCP Family Medicine; Referring Provider Family Medicine; Visit Provider Family Medicine
DX: E11.9 Type 2 diabetes mellitus without complications (principal); E66.01 Morbid (severe) obesity due to excess calories; E55.9 Vitamin D deficiency, unspecified
CPT/HCPCS: 36415; 80053; 82043; 82570; 83036

== ENCOUNTER → 2024-03-04 08:51 | Outpatient (CLI) | payer MEDICARE, SELFPAY ==
[2024-03-04 10:20] LABS: Add Manual Diff / Slide Review NO; Basophils Absolute Auto 0 /uL (0-100); Basophils Percent Auto 0.5 % (0-2); Eosinophils Absolute Auto 200 /uL (0-450); Eosinophils Percent Auto 3.8 % (2-4); Hematocrit 36.9 % (36-46); Hemoglobin 12.1 g/dL (12.0-16.0); Lymphocytes Absolute Auto 1100 /uL (1100-4500); Lymphocytes Percent Auto 25.6 % (25-40); Mean Corpuscular HGB Conc 32.7 % (30-36); Mean Corpuscular Hemoglobin 28.5 PG (26-34); Mean Corpuscular Volume 87.2 fL (80-100); Monocytes Absolute Auto 300 /uL (0-900); Monocytes Percent Auto 7.4 % (3-14); Neutrophils Absolute Auto 2700 /uL (1500-7000); Neutrophils Percent Auto 62.7 % (50-75); Platelet Count 162 X10^3/uL (150-400); Red Blood Cell Count 4.23 X10^6/uL (4.0-5.2); Red Cell Distribution Width 15.7 % (11.6-14.8); White Blood Cell Count 4.3 X10^3/uL (4.5-11.0)
[2024-03-04 10:39] LABS: Alanine Aminotransferase 32 IU/L (<35); Albumin 3.9 g/dL (3.5-5.0); Albumin Globulin Ratio 1.9 (1.0-2.8); Alkaline Phosphatase 105 U/L (38-126); Aspartate Aminotransferase 39 IU/L (14-36); BUN Creatinine Ratio 21.9 (6-22); Bilirubin Total 0.7 mg/dL (0.2-1.3); Blood Urea Nitrogen 14 mg/dL (7-17); Calcium 9.9 mg/dL (8.4-10.2); Carbon Dioxide 32 mmol/L (22-32); Chloride 103 mmol/L (98-107); Cholesterol 159 mg/dL (140-199); Estimated Glomerular Filt Rate > 60 mL/min (>60); Globulin 2.1 g/dL (1.7-4.1); Glucose 96 mg/dL (80-110); HDL Cholesterol 49 mg/dL (40-60); HEMOLYSIS < 15 (0-50); LDL Cholesterol Calculated 93 mg/dL (<100); Potassium 4.7 mmol/L (3.4-5.1); Sodium 138 mmol/L (137-145); Triglycerides 87 mg/dL (35-150)
== END ==
PROVIDERS: PCP Family Medicine; Referring Provider Family Medicine; Visit Provider Family Medicine
DX: E11.9 Type 2 diabetes mellitus without complications (principal); Z68.43 Body mass index [BMI] 50.0-59.9, adult
CPT/HCPCS: 36415; 80053; 80061; 83036; 85025

== ENCOUNTER → 2024-03-13 14:15 | Outpatient (CLI) | payer MEDICARE, SELFPAY ==
--- NOTE | 2024-03-13 14:16 | DI.US.S_ITS ---
PROCEDURE: US THYROID INDICATIONS: thyroid goiter TECHNIQUE: Real-time scanning was performed of the thyroid gland, with image documentation. COMPARISON: None. FINDINGS: Thyroid: Right lobe measures 7.6 x 3.9 x 4.6 cm. Left lobe measures 3.5 x 1 x 1.3 cm. Isthmus is 0.4 cm thick. Echotexture is heterogeneous. Nodule number: 1 Location: Lower pole right thyroid lobe which was previously biopsied. Size: 5.2 x 3.3 x 3.8 cm, previously 4.3 x 4.4 x 3.6 cm. Composition: Predominantly solid Echogenicity: Isoechoic Shape: Wider than tall Margins: Lobulated Echogenic foci: Macro calcifications Total points: 6 ACR TI-RADS category: Moderately suspicious Nodule number: 2 Location: Upper pole right thyroid lobe Size: 2.8 x 1.7 x 2.6 cm, previously 2.3 x 2.4 x 1.6 cm. Composition: Predominantly solid Echogenicity: Isoechoic Shape: Wider than tall Margins: Smooth Echogenic foci: None Total points: 3 ACR TI-RADS category: Mildly suspicious. Nodule number: 3 Location: Upper pole right thyroid lobe Size: 1.6 x 0.9 x 1.1 cm, previously 1.2 x 1.4 x 0.6 cm. Composition: Predominantly solid Echogenicity: Hypoechoic Shape: Wider than tall Margins: Smooth Echogenic foci: Punctate Total points: 7 ACR TI-RADS category: Highly suspicious Nodule number: 4 Location: Midpole left thyroid lobe Size: 1.6 x 0.7 x 1 cm, previously 1.3 x 0.9 x 0.6 cm. Composition: Predominantly solid Echogenicity: Isoechoic Shape: Wider than tall Margins: Smooth Echogenic foci: Macro calcifications Total points: 4 ACR TI-RADS category: Moderately suspicious IMPRESSION: Interval slight increase in size of patient's known bilateral thyroid nodules. Enlarged right thyroid lobe with heterogeneous thyroid parenchymal echotexture. Please correlate with prior FNA results. Repeat fine needle aspiration of nodule 1 and/or fine needle aspiration of nodules 2 and 3 can be done for further evaluation if indicated. ACR TI-RADS definitions and recommendations: TI-RADS 1 (benign): 0 points. FNA not needed. TI-RADS 2 (not suspicious): 2 points. FNA not needed. TI-RADS 3: 3 points. * FNA if 2.5 cm or larger, follow up if 1.5 cm or larger (at 1, 3, and 5 years). TI-RADS 4: 4-6 points. * FNA if 1.5 cm or larger, follow up if 1 cm or larger (at 1, 2, 3, and 5 years). TI-RADS 5: 7 points or more. * FNA if 1 cm or larger, follow up if 0.5 cm or larger (every year for 5 years). Dictated by: Leonard De Jesus M.D. on 03/13/2024 at 18:56 Approved by: Leonard De Jesus M.D. on 03/13/2024 at 19:00
== END ==
PROVIDERS: PCP Family Medicine; Referring Provider Family Medicine; Visit Provider Family Medicine
DX: E04.2 Nontoxic multinodular goiter
CPT/HCPCS: 76536

== ENCOUNTER → 2024-05-29 13:58 | Outpatient (CLI) | payer MEDICARE, OTHER, SELFPAY ==
[2024-05-29 15:08] LABS: Influenza A - CEPHEID Flu A NEGATIVE (NEGATIVE); Influenza B - CEPHEID Flu B NEGATIVE (NEGATIVE); Respiratory Syncytial Virus Negative (Negative)
[2024-05-29 15:10] LABS: COVID-19 CEPHEID 4-PLEX PCR Negative (Negative)
== END ==
PROVIDERS: PCP Family Medicine; Visit Provider Nurse Practitioner Family
DX: R05.1 Acute cough (principal)
CPT/HCPCS: 0241U; 87070

== ENCOUNTER → 2024-10-29 09:15 | Outpatient (CLI) | payer MEDICARE, OTHER, SELFPAY ==
[2024-10-29 10:00] LABS: Add Manual Diff / Slide Review NO; Hematocrit 36.7 % (36-46); Hemoglobin 12.1 g/dL (12.0-16.0); Lymphocytes Absolute Auto 1400 /uL (1100-4500); Mean Corpuscular HGB Conc 32.9 % (30-36); Mean Corpuscular Hemoglobin 28.9 PG (26-34); Mean Corpuscular Volume 87.8 fL (80-100); Platelet Count 167 X10^3/uL (150-400)
[2024-10-29 10:14] LABS: Hemoglobin A1C% w Est Avg Glu 5.6 % (4.0-6.0)
[2024-10-29 10:23] LABS: Alanine Aminotransferase 24 IU/L (<35); Albumin 3.9 g/dL (3.5-5.0); Albumin Globulin Ratio 1.9 (1.0-2.8); Alkaline Phosphatase 94 U/L (38-126); Blood Urea Nitrogen 16 mg/dL (7-17); Calcium 10.0 mg/dL (8.4-10.2); Carbon Dioxide 32 mmol/L (22-32); Chloride 104 mmol/L (98-107); Cholesterol 142 mg/dL (140-199); Estimated Glomerular Filt Rate > 60 mL/min (>60); Globulin 2.1 g/dL (1.7-4.1); Glucose 85 mg/dL (70-99); HDL Cholesterol 45 mg/dL (40-60); HEMOLYSIS < 15 (0-50); Potassium 4.5 mmol/L (3.4-5.1); Sodium 139 mmol/L (137-145); Total Protein 6.0 g/dL (6.3-8.2); Triglycerides 85 mg/dL (35-150)
== END ==
PROVIDERS: PCP Family Medicine; Referring Provider Family Medicine; Visit Provider Family Medicine
DX: E11.9 Type 2 diabetes mellitus without complications (principal); Z68.41 Body mass index [BMI] 40.0-44.9, adult
CPT/HCPCS: 36415; 80053; 80061; 83036; 85025

== ENCOUNTER → 2025-03-09 08:52 | Outpatient (CLI) | payer MEDICARE, OTHER, SELFPAY | PROVIDERS: PCP Family Medicine; Visit Provider Nurse Practitioner Family | DX: J02.9 Acute pharyngitis, unspecified (principal) | CPT/HCPCS: 87880 ==